=== PATIENT | male | born 1960 | race Caucasian/White ===

== ENCOUNTER → 2017-09-03 | Outpatient (CLI) | payer BC, MEDICARE ==
--- NOTE | 2017-09-03 14:57 | US ---
EXAMINATION TYPE: US venous doppler duplex LE DATE OF EXAM: 09/03/2017 9:50 AM COMPARISON: NONE CLINICAL HISTORY: M79.604 pain rt leg, M79.605 pain left leg. SIDE PERFORMED: Bilateral TECHNIQUE: The lower extremity deep venous system is examined utilizing real time linear array sonog humaira with graded compression, doppler sonography and color-flow sonography. VESSELS IMAGED: External Iliac Vein (EIV) Common Femoral Vein Deep Femoral Vein Greater Saphenous Vein * Femoral Vein Popliteal Vein Small Saphenous Vein * Proximal Calf Veins (* superficial vessels) NO reflux detected in right leg, unable to test in groin as patient could not valsalva and augmentati on not sufficient to move blood as patient has very large body habitus. Right Leg: Negative for DVT Left Leg: Positive for DVT of indeterminate age. From the mid FV through distal pop there is partial compression, thready flow and continuous flow noted, all consistent with chronic 'DVT, IMPRESSION: Left lower extremity findings favored chronic nonocclusive thrombus as detailed above. N o convincing evidence for acute DVT in either lower extremity.
== END ==
LOC: RADUSWWP 08:41
PROVIDERS: ATTEND Podiatrist
DX: M79.604 Pain in right leg (principal); M79.605 Pain in left leg
CPT/HCPCS: 93970; 99212

== ENCOUNTER → 2022-01-13 | Outpatient (CLI) | payer MEDICARE, OTHER ==
--- NOTE | 2022-01-13 20:18 | EEG ---
ELECTROENCEPHALOGRAM REPORT CLINICAL HISTORY: This is a 61-year-old gentleman with history of reported seizures with recent possible break-through seizure that was suspected. The video EEG is obtained to evaluate for seizure epileptiform activity. RELEVANT MEDICATION: Unknown per medical record. EEG TYPE: A routine 21 channel EEG is performed with video using the 10/20 electrode system. DESCRIPTION: Wakefulness and drowsiness are obtained. During awake state, the posterior- dominant rhythm consists of low to moderate voltage of 7-8 hertz that is well modulated, well sustained. There is no physiological stage 2 sleep architecture. There is no focal slowing. Interictal and ictal is none. ACTIVATION PROCEDURE: Photic stimulation did evoke a posterior driving response at multiple low flash frequencies. There is no abnormality during the photic stimulation. Hyperventilation is not performed. CLINICAL INTERPRETATION: This is an abnormal routine EEG. The background slowing is suggestive of mild encephalopathy of unknown etiology. Otherwise, there is no focal slowing, epileptiform discharge or seizure on the EEG. Clinical correlation is recommended. RECOMMENDATION: If there continues suspicion for seizure, recommend an ambulatory EEG as an outpatient. MMODL / IJN: [id number] / NICOLE
== END ==
LOC: NEUROMAIN 08:05
PROVIDERS: ATTEND Psychiatry & Neurology Neurology
DX: R56.9 Unspecified convulsions (principal); Z87.891 Personal history of nicotine dependence; Z88.0 Allergy status to penicillin
CPT/HCPCS: 95816

== ENCOUNTER 2022-10-28 15:55 | Inpatient (IN) | payer MEDICARE, OTHER ==
--- NOTE | 2022-10-28 16:46 | ED ---
Fever HPI - General Source: RN notes reviewed <Marli Henning - Last Filed: 10/28/22 16:38> <Gloria Whittington - Last Filed: 11/03/22 00:21> - General Stated Complaint: right foot swelling Time Seen by Provider: 10/28/22 16:44 - History of Present Illness Initial Comments: Patient is a 62-year-old male who presents to the emergency department for right foot swelling. He denies injury. Patient states he has infection of his right foot which he follows with the wound clinic for. Patient states he was sent by Dr. Ashraf today for IV antibiotics. Patient is diabetic. He denies any signific ant pain in the extremity. Denies chest pain. Denies fever, chills, nausea, vomiting. (Marli Henning) 62-year-old male past history of diabetes mellitus, chronic lower extremity wounds presents emergency department from outside hospital. States that he found a wound on his right foot. Was evaluated at [facility] and he wanted him admitted but to send him down to [facility]. Patient wanted to stay an area and therefore he left and came to our facility. Reports that he had an x-ray performed which demonstrated a foreign body. Patient normally follows with Dr. Ashraf from podiatry. He is not currently on any antibiotics. He admits to some pain in the foot. No swelling or redness to the cath. No fevers. No other alleviating, crt modifying factors (Gloria Whittington) - Related Data Home Medications Medication Instructions Recorded Confirmed Pentoxifylline 400 mg PO TID 07/16/17 10/28/22 Atorvastatin [Lipitor] 20 mg PO HS 10/28/22 10/28/22 Empagliflozin [Jardiance] 25 mg PO DAILY 10/28/22 10/28/22 glipiZIDE 10 mg PO BID 10/28/22 10/28/22 Previous Rx's Medication Instructions Recorded Cephalexin [Keflex] 500 mg PO Q6HR #56 cap 11/02/22 Allergies Allergy/AdvReac Type Severity Reaction Status Date / Time Penicillins Allergy Rash/Hives Verified 10/28/22 18:55 Review of Systems ROS Other: All systems not noted in ROS Statement are negative. <Marli Henning - Last Filed: 10/28/22 16:38> ROS Other: All systems not noted in ROS Statement are negative. <Gloria Whittington Jason - Last Filed: 11/03/22 00:21> ROS Statement: Those systems with pertinent positive or pertinent negative responses have been documented in the HPI. Past Medical History Past Medical History: Asthma, Diabetes Mellitus, Hypertension, Osteoarthritis (OA), Seizure Disorder, Vascular Disorder Additional Past Medical History / Comment(s): edema and open wounds to right leg History of Any Multi-Drug Resistant Organisms: None Reported Past Surgical History: Appendectomy, Cholecystectomy, Orthopedic Surgery Additional Past Surgical History / Comment(s): alcira in left leg from fractured femur, colonoscopy Past Anesthesia/Blood Transfusion Reactions: No Reported Reaction Past Psychological History: No Psychological Hx Reported - Past Family History Mother Family Medical History: Coronary Artery Disease (CAD), CVA/TIA Father Family Medical History: Dementia <Marli Henning - Last Filed: 10/28/22 16:38> General Exam <Marli Henning - Last Filed: 10/28/22 16:38> - General Exam Comments Initial Comments: Visual Physical Exam Vital signs reviewed General: Well-appearing, nontoxic, no acute distress. Head: Normocephalic, atraumatic Eyes: PERRLA, EOMI ENT: Airway patent Chest: Nonlabored breathing Skin: No visual rash, normal skin tone Neuro: Alert and oriented 3 Musculoskeletal: No gross abnormalities (Marli Henning) Course Vital Signs 10/28/22 10/28/22 10/28/22 16:59 17:01 18:01 Temperature 100.2 F H 98.9 F 98.9 F Pulse Rate 68 88 88 Pulse Rate [ Pulse Oximetery ] Respiratory 18 16 20 Rate Blood Pressure 152/74 153/91 145/90 Blood Pressure [Right Arm] O2 Sat by Pulse 98 97 98 Oximetry 10/28/22 10/28/22 10/28/22 19:01 20:00 21:00 Temperature 98.8 F Pulse Rate 67 80 77 Pulse Rate [ Pulse Oximetery ] Respiratory 16 20 20 Rate Blood Pressure 150/90 148/95 150/60 Blood Pressure [Right Arm] O2 Sat by Pulse 98 98 98 Oximetry 10/28/22 10/28/22 10/29/22 22:00 23:00 00:00 Temperature Pulse Rate 77 79 84 Pulse Rate [ Pulse Oximetery ] Respiratory 18 16 16 Rate Blood Pressure 153/66 169/79 154/77 Blood Pressure [Right Arm] O2 Sat by Pulse 95 97 98 Oximetry 10/29/22 10/29/22 10/29/22 01:00 02:00 04:00 Temperature Pulse Rate 80 81 74 Pulse Rate [ Pulse Oximetery ] Respiratory 16 16 16 Rate Blood Pressure 142/72 107/74 126/70 Blood Pressure [Right Arm] O2 Sat by Pulse 98 98 Oximetry 10/29/22 10/29/22 06:05 07:00 Temperature 97.6 F Pulse Rate 81 Pulse Rate [ 94 Pulse Oximetery ] Respiratory 16 16 Rate Blood Pressure 141/75 Blood Pressure 138/78 [Right Arm] O2 Sat by Pulse 95 96 Oximetry Medical Decision Making - Lab Data Result diagrams: 10/31/22 06:10 11/02/22 11:23 <Gloria Whittington A - Last Filed: 11/03/22 00:21> - Medical Decision Making Was pt. sent in by a medical professional or institution (, PA, CONSTRUCTION [employer]AMER, urgent care, hospital, or correction...) When possible be specific @ -yes, PCP Did you speak to anyone other than the patient for history (EMS, parent, family, police, friend...)? What history was obtained from this source @ -No Did you review nursing and triage notes (agree or disagree)? Why? @ -I reviewed and agree with nursing and triage notes Were old charts reviewed (outside hosp., previous admission, EMS record, old EKG, old radiological studies, urgent care reports/EKG's, correction records)? Report findings @ -No old charts were reviewed Differential Diagnosis (chest pain, altered mental status, abdominal pain women, abdominal pain men, vaginal bleeding, weakness, fever, dyspnea, syncope, headache, dizziness, GI bleed, back pain, seizure, CVA, palpatations, mental health, musculoskeletal)? @ -cellulitis, abscess, retained foreign body, necrotizing fascitis, sepsis EKG interpreted by me (3pts min.). @ -Not done X-rays interpreted by me (1pt min.). @ -yes CT interpreted by me (1pt min.). @ -None done U/S interpreted by me (1pt. min.). @ -None done What testing was considered but not performed or refused? (CT, X-rays, U/S, labs)? Why? @ -None What meds were considered but not given or refused? Why? @ -Unasyn - patient has pcn allergy Did you discuss the management of the patient with other professionals (professionals i.e. , PA, CONSTRUCTION [employer]AMER, lab, RT, psych nurse, social sciences lecturer, geographic information system analyst, teacher, accounts officer, employment case manager)? Give summary @ -Admitting physician Was smoking cessation discussed for >3mins.? @ -No Was critical care preformed (if so, how long)? @ -No Were there social determinants of health that impacted care today? How? (Homelessness, low income, unemployed, alcoholism, drug addiction, transportation, low edu. Level, literacy, decrease access to med. care, fci, rehab)? @ -No Was there de-escalation of care discussed even if they declined (Discuss DNR or withdrawal of care, Hospice)? DNR status @ -No What co-morbidities impacted this encounter? (DM, HTN, Smoking, COPD, CAD, Can cer, CVA, ARF, Chemo, Hep., AIDS, mental health diagnosis, sleep apnea, morbid obesity)? @ -DM, htn Was patient admitted / discharged? Hospital course, mention meds given and route, prescriptions, significant lab abnormalities, going to OR and other pertinent info. @ -Upon arrival patient was placed into room 10. A thorough history and phy sical exam was performed. X-ray was performed which demonstrates a metallic foreign body in the right lateral foot. Sed rate is 70. CRP is 14.4. White count is 14. Blood cultures obtained and patient started on clindamycin. Recommended admission for podiatry consult. Patient was agreeable to this. Spoke with Dr. Hughes who agreed to admit the patient. Undiagnosed new problem with uncertain prognosis? @ -yes Drug Therapy requiring intensive monitoring for toxicity (Heparin, Nitro, Insulin, Cardizem)? @ -No Were any procedures done? @ -No Diagnosis/symptom? @ -right foot open wound, right foot cellulitis, retained foreign body Acute, or Chronic, or Acute on Chronic? @ -acute Uncomplicated (without systemic symptoms) or Complicated (systemic symptoms)? @ -complicated Side effects of treatment? @ -No Exacerbation, Progression, or Severe Exacerbation? @ -No Poses a threat to life or bodily function? How? (Chest pain, [place], [place], pneumonia, PE, COPD, DKA, ARF, appy, cholecystitis, CVA, Diverticulitis, Homicidal, Suicidal, threat to staff... and all critical care pts) @ -yes (Gloria Whittington) - Lab Data Lab Results 10/28/22 10/28/22 10/28/22 Range/Units 18:00 18:00 18:00 WBC 14.1 H (3.8-10.6) k/uL RBC 5.11 (4.30-5.90) m/uL Hgb 15.1 (13.0-17.5) gm/dL Hct 45.4 (39.0-53.0) % MCV 88.8 (80.0-100.0) fL MCH 29.5 (25.0-35.0) pg MCHC 33.2 (31.0-37.0) g/dL RDW 13.8 (11.5-15.5) % Plt Count 296 (150-450) k/uL MPV 7.3 Neutrophils % 80 % Lymphocytes % 10 % Monocytes % 7 % Eosinophils % 1 % Basophils % 0 % Neutrophils # 11.3 H (1.3-7.7) k/uL Lymphocytes # 1.4 (1.0-4.8) k/uL Monocytes # 1.0 (0-1.0) k/uL Eosinophils # 0.2 (0-0.7) k/uL Basophils # 0.0 (0-0.2) k/uL ESR 70 H (0-15) mm/hr Sodium 139 (137-145) mmol/L Potassium 4.7 (3.5-5.1) mmol/L Chloride 102 (98-107) mmol/L Carbon Dioxide 30 (22-30) mmol/L Anion Gap 7 mmol/L BUN 14 (9-20) mg/dL Creatinine 0.54 L (0.66-1.25) mg/dL Est GFR (CKD-EPI)AfAm >90 (>60 ml/min/1.73 sqM) Est GFR (CKD-EPI)NonAf >90 (>60 ml/min/1.73 sqM) Glucose 189 H (74-99) mg/dL Plasma Lactic Acid Paresh 1.2 (0.7-2.0) mmol/L Calcium 8.9 (8.4-10.2) mg/dL Total Bilirubin 0.9 (0.2-1.3) mg/dL AST 18 (17-59) U/L ALT 14 (4-49) U/L Alkaline Phosphatase 128 H (38-126) U/L C-Reactive Protein 14.4 H (<1.0) mg/dL Total Protein 7.8 (6.3-8.2) g/dL Albumin 4.0 (3.5-5.0) g/dL Disposition <Marli Henning - Last Filed: 10/28/22 16:38> Is patient prescribed a controlled substance at d/c from ED?: No Time of Disposition: 21:20 Decision to Admit Reason: Admit from EC Decision Date: 10/28/22 Decision Time: 21:20 <Gloria Whittington - Last Filed: 11/03/22 00:21> Clinical Impression: Foreign body in foot, Foot ulcer, Leukocytosis Disposition: ADMITTED IP TO THIS HOSP Condition: Stable
[2022-10-28 18:10] LABS: Basophils % (A) 0 %; Eosinophils # (A) 0.2 k/uL (0-0.7); Eosinophils % (A) 1 %; HCT 45.4 % (39.0-53.0); HGB 15.1 gm/dL (13.0-17.5); Lymphocytes # (A) 1.4 k/uL (1.0-4.8); Lymphocytes % (A) 10 %; MCH 29.5 pg (25.0-35.0); MCHC 33.2 g/dL (31.0-37.0); MCV 88.8 fL (80.0-100.0); Mean Platelet Volume 7.3; Monocytes % (A) 7 %; Neutrophils # (A) 11.3 k/uL (1.3-7.7); Neutrophils % (A) 80 %; Platelet Count 296 k/uL (150-450); RBC 5.11 m/uL (4.30-5.90); RDW 13.8 % (11.5-15.5); WBC 14.1 k/uL (3.8-10.6)
[2022-10-28 18:22] LABS: ALT 14 U/L (4-49); AST 18 U/L (17-59); African American GFR (CKD) >90 (>60 ml/min/1.73 sqM); Alkaline Phosphatase 128 U/L (38-126); Anion Gap 7 mmol/L; Blood Urea Nitrogen 14 mg/dL (9-20); Calcium 8.9 mg/dL (8.4-10.2); Carbon Dioxide 30 mmol/L (22-30); Chloride 102 mmol/L (98-107); Glucose 189 mg/dL (74-99); Non-African American GFR(CKD) >90 (>60 ml/min/1.73 sqM); Potassium 4.7 mmol/L (3.5-5.1); Sodium 139 mmol/L (137-145); Total Bilirubin 0.9 mg/dL (0.2-1.3); Total Protein 7.8 g/dL (6.3-8.2)
[2022-10-28 18:40] LABS: C Reactive Protein 14.4 mg/dL (<1.0)
[2022-10-28 19:44] LABS: Erythrocyte Sedimentation Rate 70 mm/hr (0-15)
[2022-10-28] MEDS ORDERED: CLINDAMYCIN 600 MG in DEXTROSE 5% IN WATER 50 ML IVPB STA ×2 (20:32)
--- NOTE | 2022-10-28 20:51 | XR ---
EXAMINATION TYPE: XR foot complete RT DATE OF EXAM: 10/28/2022 8:47 PM INDICATION: Patient age:Male; 62 years old; Reason for study: wound, foreign body; COMPARISON: None TECHNIQUE: The right foot was examined in the AP, oblique, and lateral projections. FINDINGS: No evidence of any acute osseous pathology. No evidence of soft tissue swelling. Joints are preserve d. Linear radiopaque foreign body in the lateral right foot near the distal left fifth metatarsal shaft. IMPRESSION: 1. Linear radiopaque foreign body in the lateral right foot near the distal left fifth metatarsal sh aft. 2. No evidence of fracture.
[2022-10-28] MEDS ORDERED: HYDROcodone/APAP 5-325MG 1 EACH TAB PO PRN (21:20)
[2022-10-28] MEDS ORDERED: NALOXONE 0.4 MG/ML 1 ML VIAL IV PRN (21:20)
[2022-10-28] MEDS ORDERED: VANCOMYCIN IV PER PHARMACY 1 EACH MISC MISCELLANE PRN (23:57)
[2022-10-29] MEDS ORDERED: LEVOFLOXACIN 750MG-D5W PMX 750 MG in DEXTROSE/WATER 1 150ML.BAG IVPB SCH
[2022-10-29] MEDS: ATORVASTATIN 20 MG TAB PO SCH ×2 (00:02→21:02)
[2022-10-29] MEDS: PENTOXIFYLLINE 400 MG TABLET.ER PO SCH ×4 (00:02→21:02)
[2022-10-29] MEDS ORDERED: VANCOMYCIN 2,000 MG in SODIUM CHLORIDE 0.9% 500 ML 500 ML IVPB ONE (00:15)
--- NOTE | 2022-10-29 00:36 | P.HPIM ---
History of Present Illness H&P Date: 10/28/22 Chief Complaint: foot ulcer 62 year old male with DM , morbid obesity patient coming in today after noticing an ulcer in his right foot, he noticed some pain (has neuropathy and does not feel much) and swelling, and erythema. he denies any fever, chills, , he does not recall how he got it injured. he went to [facility] , and xrays showed foreign body in the wound , and his doctor suggested admission to the hospital , he decided to come in to our facility to stay in the area. he follows up with podiatry as outpatient. he denies any bleeding, any drainage from the wound. he is trying to live a healthier life style and has lost 160 lbs intentionally over the past year. he denies any smoking, illicit drugs or alcohol Review of Systems Pertinent positives as noted in HPI. All other systems were reviewed and are negative Past Medical History Past Medical History: Asthma, Diabetes Mellitus, Hypertension, Osteoarthritis (OA), Seizure Disorder, Vascular Disorder Additional Past Medical History / Comment(s): edema and open wounds to right leg History of Any Multi-Drug Resistant Organisms: None Reported Past Surgical History: Appendectomy, Cholecystectomy, Orthopedic Surgery Additional Past Surgical History / Comment(s): alcira in left leg from fractured femur, colonoscopy Past Anesthesia/Blood Transfusion Reactions: No Reported Reaction Past Psychological History: No Psychological Hx Reported Smoking Status: Never smoker Past Alcohol Use History: None Reported Past Drug Use History: None Reported - Past Family History Mother Family Medical History: Coronary Artery Disease (CAD), CVA/TIA Father Family Medical History: Dementia Medications and Allergies Home Medications Medication Instructions Recorded Confirmed Type Pentoxifylline 400 mg PO TID 07/16/17 10/28/22 History Atorvastatin [Lipitor] 20 mg PO HS 10/28/22 10/28/22 History Empagliflozin [Jardiance] 25 mg PO DAILY 10/28/22 10/28/22 History glipiZIDE 10 mg PO BID 10/28/22 10/28/22 History Allergies Allergy/AdvReac Type Severity Reaction Status Date / Time Penicillins Allergy Rash/Hives Verified 10/28/22 18:55 Physical Exam Vitals: Vital Signs Temp Pulse Resp BP Pulse Ox 10/28/22 20:00 80 20 148/95 98 10/28/22 19:01 98.8 F 67 16 150/90 98 10/28/22 18:01 98.9 F 88 20 145/90 98 10/28/22 17:01 98.9 F 88 16 153/91 97 10/28/22 16:59 100.2 F H 68 18 152/74 98 Intake and Output 10/28/22 10/28/22 10/28/22 06:59 14:59 22:59 Other: Weight 135.624 kg Constitutional: No acute distress, conversant, pleasant Eyes: Anicteric sclerae, moist conjunctiva, Pupils equal round reactive to light ENMT: NC/AT Oropharynx clear, no erythema, or exudates Neck: Supple, no masses, or JVD No carotid bruits No thyromegaly Lungs: Clear to auscultation Clear to percussion Normal respiratory effort, no accessory muscle use Cardiovascular: Heart regular in rate and rhythm, No murmurs, gallops, or rubs No peripheral edema Abdominal: Soft Nontender, no guarding, rebound or rigidity Abdomen moving with respiration Normoactive bowel sounds No hepatomegaly, No splenomegaly No palpable mass No abdominal wall hernia noted Skin: ulcer over the lateral aspect of the right foot, no bleeding , no drainage, with surrounding erythema and slight induration , swelling of the right foot erythema extends to mid foot Extremities: No digital cyanosis No clubbing Pedal pulses intact and symmetrical Radial pulses intact and symmetrical No calf tenderness Psychiatric: Alert and oriented to person, place and time Appropriate affect fair judgment Neuro Muscles Strength 5/5 in all 4 extremities Sensation to light touch grossly present throughout, with decrease sensation over the legs Cranial nerves II-XII grossly intact Lymphatics: no palpable cervical or supraclavicular lymph nodes Results CBC & Chem 7: 10/28/22 18:00 10/28/22 18:00 Labs: Abnormal Lab Results - Last 24 Hours (Table) 10/28/22 10/28/22 Range/Units 18:00 18:00 WBC 14.1 H (3.8-10.6) k/uL Neutrophils # 11.3 H (1.3-7.7) k/uL ESR 70 H (0-15) mm/hr Creatinine 0.54 L (0.66-1.25) mg/dL Glucose 189 H (74-99) mg/dL Alkaline Phosphatase 128 H (38-126) U/L C-Reactive Protein 14.4 H (<1.0) mg/dL Assessment and Plan Assessment: 62 year old male with DM , obesity , presented for new right foot ulcer, I discussed the case with ED doc, patient found to have a foreign body in the right foot along with diabetic foot ulcer , admitted for IV antibiotics and surgical evaluation with anticipated length of stay > 2 midnights diabetic foot ulcer with foreign body DM follow up cultures podiatry consultation initiated on antibiotics , patient received one time dose clindamycin in the ED will start vancomycin dosing by pharmacy , flagyl 500 mg IVPB TID, levofloxacin 750 mg IVPB q24 hrs (patient allergic to penicillin ) pain control with norco tylenol for fever 650 mg PO qrh PRN blood work showed WBC 14.1, low grade fever , ESR 70, CRP 14.4 xray of the foot showed foreign body in the wound insulin sliding scale for DM blood work reviewed , BUN 14 Cr 0.54 , alk phos 128 elevated , check UA , patient reported urgency and foul smelling urine morbid obesity , intentional weight loss of 166 lb over > 1 year with life style modification full code DVT PPX heparin sc tid
[2022-10-29] MEDS: metroNIDAZOLE-NS PMX 500 MG in SALINE 1 100ML.BAG IVPB SCH ×2 (01:30→10:19)
[2022-10-29] MEDS: SODIUM CHLORIDE 0.9% 1,000 ML IV SCH ×2 (01:31→15:26)
[2022-10-29 05:42] LABS: Appearance,Urine Clear (Clear); Bacteria,Urine Rare /hpf; Bilirubin,Urine Negative (Negative); Blood,Urine Negative (Negative); Budding Yeast,Urine Few /hpf; Color,Urine Yellow; Glucose,Urine (UA) 4+ (Negative); Hyaline Casts,Urine 1 /lpf (0-2); Ketones,Urine 1+ (Negative); Leukocyte Esterase,Urine Negative (Negative); Mucus,Urine Moderate /hpf; Nitrite,Urine Negative (Negative); PH, Urine 5.5 (5.0-8.0); Protein,Urine 2+ (Negative); RBC,Urine 1 /hpf (0-5); Specific Gravity,Urine 1.036 (1.001-1.035); Squamous Epithelial Cell,Urine 3 /hpf (0-4); WBC,Urine 2 /hpf (0-5)
[2022-10-29 06:56] LABS: Glucose,Whole Blood 172 mg/dL (70-110)
[2022-10-29] MEDS: INSULIN ASPART (NovoLOG) 100 UNIT/ML VIAL SQ SCH ×4 (08:41→21:07)
[2022-10-29] MEDS ORDERED: glipiZIDE 10 MG TAB PO SCH (09:00)
[2022-10-29] MEDS ORDERED: DAPAGLIFLOZIN PROPANEDIOL 10 MG TABLET PO SCH (09:00)
[2022-10-29 09:11] LABS: Basophils # (A) 0.1 k/uL (0-0.2); Basophils % (A) 1 %; Eosinophils # (A) 0.3 k/uL (0-0.7); Eosinophils % (A) 3 %; HCT 42.6 % (39.0-53.0); HGB 14.2 gm/dL (13.0-17.5); Lymphocytes # (A) 1.4 k/uL (1.0-4.8); Lymphocytes % (A) 16 %; MCH 29.6 pg (25.0-35.0); MCHC 33.4 g/dL (31.0-37.0); MCV 88.6 fL (80.0-100.0); Mean Platelet Volume 7.8; Monocytes # (A) 0.6 k/uL (0-1.0); Monocytes % (A) 6 %; Neutrophils # (A) 6.6 k/uL (1.3-7.7); Neutrophils % (A) 72 %; Platelet Count 270 k/uL (150-450); RBC 4.81 m/uL (4.30-5.90); RDW 14.1 % (11.5-15.5); WBC 9.2 k/uL (3.8-10.6)
[2022-10-29 09:26] LABS: African American GFR (CKD) >90 (>60 ml/min/1.73 sqM); Anion Gap 8 mmol/L; Blood Urea Nitrogen 13 mg/dL (9-20); Calcium 8.4 mg/dL (8.4-10.2); Carbon Dioxide 25 mmol/L (22-30); Chloride 105 mmol/L (98-107); Glucose 215 mg/dL (74-99); Non-African American GFR(CKD) >90 (>60 ml/min/1.73 sqM); Potassium 4.3 mmol/L (3.5-5.1); Sodium 138 mmol/L (137-145)
[2022-10-29] MEDS: HEPARIN SODIUM,PORCINE/PF 5,000 UNIT/0.5 ML SYRINGE SQ SCH ×3 (10:18→23:18)
[2022-10-29 12:01] LABS: Glucose,Whole Blood 196 mg/dL (70-110)
[2022-10-29] MEDS: VANCOMYCIN 2,000 MG in SODIUM CHLORIDE 0.9% 500 ML 500 ML IVPB SCH ×2 (13:05→21:02)
[2022-10-29] MEDS ORDERED: IV FLUID CONTINUATION 1,000 ML IV ONE (15:19)
[2022-10-29] MEDS ORDERED: ONDANSETRON 4 MG/2 ML VIAL ONE (15:34)
[2022-10-29 15:35] LABS: Glucose,Whole Blood 142 mg/dL (70-110)
[2022-10-29] MEDS ORDERED: DEXAMETHASONE SOD PHOSPHATE 4 MG/ML 1 ML VIAL IVP ONE (15:39)
[2022-10-29] MEDS ORDERED: ONDANSETRON 4 MG/2 ML VIAL IVP ONE (15:39)
[2022-10-29] MEDS ORDERED: PROPOFOL 10 MG/ML 20 ML VIAL IV ONE (15:56)
[2022-10-29] MEDS ORDERED: fentaNYL (PF) 50 MCG/ML 2 ML AMP ONE (15:56)
[2022-10-29] MEDS ORDERED: LIDOCAINE 2% INJ 20 MG/ML (2 ML VIAL) ONE (15:56)
[2022-10-29] MEDS ORDERED: MIDAZOLAM 2 MG/2 ML VIAL ONE (15:56)
[2022-10-29] MEDS ORDERED: SUCCINYLCHOLINE CHLORIDE 200 MG/10 ML VIAL IV ONE (15:56)
[2022-10-29] MEDS ORDERED: ceFAZolin 1,000 MG in SODIUM CHLORIDE 0.9% 1,000 ML IRRIGATION ONE (16:01)
[2022-10-29] MEDS ORDERED: BUPIVACAINE (PF) 0.25% 30 ML VIAL SQ ONE (16:27)
[2022-10-29 16:56] LABS: Glucose,Whole Blood 139 mg/dL (70-110)
--- NOTE | 2022-10-29 17:01 | P.CNOR ---
History of Present Illness - HPI Consult date: 10/29/22 Consult reason: other (Right foot infection with retained foreign body) Past Medical History Past Medical History: Asthma, Diabetes Mellitus, Hypertension, Osteoarthritis (OA), Seizure Disorder, Vascular Disorder Additional Past Medical History / Comment(s): edema and open wounds to right leg History of Any Multi-Drug Resistant Organisms: None Reported Past Surgical History: Appendectomy, Cholecystectomy, Orthopedic Surgery Additional Past Surgical History / Comment(s): alcira in left leg from fractured femur, colonoscopy Past Anesthesia/Blood Transfusion Reactions: No Reported Reaction Past Psychological History: No Psychological Hx Reported Smoking Status: Never smoker Past Alcohol Use History: None Reported Past Drug Use History: None Reported - Past Family History Mother Family Medical History: Coronary Artery Disease (CAD), CVA/TIA Father Family Medical History: Dementia Medications and Allergies Home Medications Medication Instructions Recorded Confirmed Type Pentoxifylline 400 mg PO TID 07/16/17 10/28/22 History Atorvastatin [Lipitor] 20 mg PO HS 10/28/22 10/28/22 History Empagliflozin [Jardiance] 25 mg PO DAILY 10/28/22 10/28/22 History glipiZIDE 10 mg PO BID 10/28/22 10/28/22 History Allergies Allergy/AdvReac Type Severity Reaction Status Date / Time Penicillins Allergy Rash/Hives Verified 10/28/22 18:55 Physical Examination Osteopathic Statement: *. No significant issues noted on an osteopathic structural exam other than those noted in the History and Physical/Consult. - Ankle & Foot right Ankle appearance: normal Foot appearance: swelling, erythema, other (entry wound on the plantar-lateral aspect of the foot near the 5th MTP with serous drainage) Foot swelling: dorsal, plantar, lateral Tenderness with palpation: lateral foot Tingling/Numbness: foot (secondary to DM neuropathy) Ankle alignment: normal Foot alignment: normal Hammer toe location: none Claw toe location: none Full ROM: yes ROM: dorsiflexion: normal ROM: plantarflexion: normal ROM: eversion: normal ROM: first MTP joint flexion: normal ROM: first MTP joint extension: normal Strength: dorsiflexion: 5/5 Strength: plantarflexion: 5/5 Strength: inversion: 5/5 Strength: eversion: 5/5 Strength: toe extension: 5/5 Strength: toe flexion: 5/5 Results - Labs Labs: Abnormal Lab Results - Last 24 Hours (Table) 10/28/22 10/28/22 10/29/22 Range/Units 18:00 18:00 01:35 WBC 14.1 H (3.8-10.6) k/uL Neutrophils # 11.3 H (1.3-7.7) k/uL ESR 70 H (0-15) mm/hr Creatinine 0.54 L (0.66-1.25) mg/dL Glucose 189 H (74-99) mg/dL POC Glucose (mg/dL) (70-110) mg/dL Alkaline Phosphatase 128 H (38-126) U/L C-Reactive Protein 14.4 H (<1.0) mg/dL Ur Specific [place] 1.036 H (1.001-1.035) Urine Protein 2+ H (Negative) Urine Glucose (UA) 4+ H (Negative) Urine Ketones 1+ H (Negative) Urine Bacteria Rare H (None) /hpf Urine Mucus Moderate H (None) /hpf Urine Yeast (Budding) Few H (None) /hpf 10/29/22 10/29/22 10/29/22 Range/Units 06:55 08:37 11:59 WBC (3.8-10.6) k/uL Neutrophils # (1.3-7.7) k/uL ESR (0-15) mm/hr Creatinine 0.52 L (0.66-1.25) mg/dL Glucose 215 H (74-99) mg/dL POC Glucose (mg/dL) 172 H 196 H (70-110) mg/dL Alkaline Phosphatase (38-126) U/L C-Reactive Protein (<1.0) mg/dL Ur Specific [place] (1.001-1.035) Urine Protein (Negative) Urine Glucose (UA) (Negative) Urine Ketones (Negative) Urine Bacteria (None) /hpf Urine Mucus (None) /hpf Urine Yeast (Budding) (None) /hpf 10/29/22 Range/Units 15:31 WBC (3.8-10.6) k/uL Neutrophils # (1.3-7.7) k/uL ESR (0-15) mm/hr Creatinine (0.66-1.25) mg/dL Glucose (74-99) mg/dL POC Glucose (mg/dL) 142 H (70-110) mg/dL Alkaline Phosphatase (38-126) U/L C-Reactive Protein (<1.0) mg/dL Ur Specific [place] (1.001-1.035) Urine Protein (Negative) Urine Glucose (UA) (Negative) Urine Ketones (Negative) Urine Bacteria (None) /hpf Urine Mucus (None) /hpf Urine Yeast (Budding) (None) /hpf Microbiology - Last 24 Hours (Table) 10/28/22 20:30 Wound Culture - Preliminary Foot - Right H & H 10/28/22 10/29/22 Range/Units 18:00 08:37 Hgb 15.1 14.2 (13.0-17.5) gm/dL Hct 45.4 42.6 (39.0-53.0) % Result Diagrams: 10/29/22 08:37 10/29/22 08:37 - Diagnostic results Ankle/Foot x-ray: report reviewed, image reviewed (metallic foreign body noted lateral to 5th MTP) Assessment and Plan (1) Foreign body in foot Current Visit: Yes Status: Acute Code(s): S90.859A - SUPERFICIAL FOREIGN BODY, UNSPECIFIED FOOT, INIT ENCNTR SNOMED Code(s): 775225535 (2) Cellulitis of right foot Current Visit: Yes Status: Acute Code(s): L03.115 - CELLULITIS OF RIGHT LOWER LIMB SNOMED Code(s): 674293535 Plan: The patient was consented for incision and drainage of right foot cellulitis and removal of metallic foreign body Patient's DPOA sign consent for surgery Wound consult submitted for follow-up Time with Patient: Less than 30
--- NOTE | 2022-10-29 17:05 | P.OP ---
Date of Procedure: 10/29/22 Preoperative Diagnosis: 1. Cellulitis right foot 2. Retained foreign body right foot Postoperative Diagnosis: 1. Same 2. Same Procedure(s) Performed: 1. Incision and drainage right foot 2. Removal of deep foreign body right foot Implants: None Anesthesia: GETA Estimated Blood Loss (ml): 5 Pathology: other (Aerobic and anaerobic wound cultures) Condition: stable Disposition: PACU Indications for Procedure: Patient developed redness, swelling, and pain in the right foot. Patient also developed a fever. Patient was brought to the emergency room for evaluation. Patient was noted to have leukocytosis and x-ray showed a retained metallic foreign body in the right foot. Description of Procedure: The patient was brought into the operating room and placed on table supine position. Timeout was taken to confirm correct patient identifiers, correct laterally with surgery, and correct procedure. When all staff in the room were in agreement timeout, the patient was induced and placed under general anesthesia. A well-padded tourniquet was placed on the right ankle and a bump underneath the right hip to internally rotate the right leg. 20 mL of 0.25% Marcaine was injected as a lateral forefoot block. The right foot was prepped and draped in usual manner. The tourniquet was then inflated to 250 mmHg. Attention was directed over the lateral aspect of the right foot, near the fifth metatarsal phalangeal joint. There appeared to be an entry wound for the foreign body, therefore an incision was made on the plantar lateral aspect of the foot near the fifth metatarsal phalangeal joint. The wound is explored and the metallic foreign body was palpated with instrumentation. The foreign body was able to be grasped and removed entirely. Blunt instrumentation was then used to follow the course of erythema on the plantar aspect of the foot. The was some tunneling within the subcutaneous tissue from lateral to medial. This area was fully opened and debrided with a curette. At this point aerobic and anaerobic wound cultures were obtained. The wound is then thoroughly irrigated with antibiotic saline utilizing a pulse lavage system. The wound is then packed with iodoform gauze. Nonadherent gauze and a dry sterile dressing were applied to the right foot. The tourniquet was released and capillary refill return to all digits on the right foot.
--- NOTE | 2022-10-29 17:14 | P.PN ---
Subjective Progress Note Date: 10/29/22 Hospital course: Patient is a 62-year-old male with a past medical history of non-insulin- dependent diabetes mellitus and hyperlipidemia. He presented to the emergency department on 03/30/23 for evaluation of right foot ulcer. Patient has ulcer/wound to right lateral foot. He underwent full evaluation in the emergency department. CBC and CMP were completed. CBC revealed leukocytosis with WBC count of 14.1 and CMP was unremarkable with the exception of elevated alkaline phosphatase of 128. CRP was elevated at 14.4 and ESR elevated at 70. X-ray right foot was completed and radiology report reviewed stating linear radiopaque foreign body in the lateral right foot near the distal fifth metatarsal shaft, no evidence of fracture. Patient was started on IV antibiotics of vancomycin and cefepime and was admitted under our services with consultation to electric refrigerator servicer. Physical exam: Patient seen and fully evaluated at bedside this morning. Patient currently reports controlled pain and denies having any complaints or concerns. Patient awaiting to go down for incision and drainage and removal of foreign body from right foot wound/ulcer. Vital signs reviewed and stable. Morbidly obese. General: Nontoxic, no distress and appears stated age. Derm: Skin warm and dry, normal coloration for ethnicity.Ulcer/wound to right lateral side of foot with swelling and erythema extending to plantar and dorsal surface of right foot. No bleeding or drainage noted at this time. Head: Atraumatic, normocephalic and symmetric. Eyes: EOMs intact, no lid lag, and anicteric sclera Mouth: no lip lesions, mucus membranes moist Cardiovascular: regular rate and rhythm with normal S1S2, no murmur, positive posterior tibial pulses bilaterally, and cap refill < 2 seconds. Lungs: Respirations even, regular, and unlabored on room air. Lungs CTA bilaterally, no rhonchi, no rales, no wheezing, and no accessory muscle usage. Abdominal: soft, nontender to palpation, no guarding, no appreciable organomegaly Ext: ROM intact. No gross muscle atrophy, no edema, no contractures. Ulcer/wound to right lateral side of foot with swelling and erythema extending to plantar and dorsal surface of right foot. No bleeding or drainage noted at this time. Neuro: Speech clear, face symmetrical and CN II-XII grossly intact with no noted focal neuro deficits Psych: Alert and oriented to person, place, time, and situation. Appropriate and pleasant affect. Assessment and Plan of Care: Infected Diabetic foot ulcer/wound with retained foreign body Type 2 diabetes mellitus with hyperglycemia Morbid obesity with BMI 38.4 kg/m -Initial WBC count of 14.1 with ESR of 70 and CRP of 14.4. -Discussed case with orthopedic/podiatry surgery. Patient to be taken to OR to undergo incision and drainage with removal of foreign body later today. -Continue IV antibiotics with vancomycin and cefepime. -Orders place for repeat morning BMP to follow renal function closely and vancomycin trough while on vancomycin to monitor for any signs of renal toxicity caused by vancomycin. -Morning labs reviewed. Patient has had resolution of previously noted susan kocytosis with WBC count down to 9.2. BMP unremarkable. -Blood glucose remains elevated ranging from 170-219 since admission. -We will continue to hold oral hypoglycemic agents and continue with NovoLog sliding scale to maintain tight glycemic control throughout hospitalization to optimize wound healing. -Infectious disease following. Reviewed note in chart. -Wound cultures and blood cultures obtained, will follow-up on results. -Patient does report intentional weight loss of greater than 100 pounds over the past year. Patient states he has made multiple changes in his life including healthier eating choices. Recommend outpatient structured weight loss program. CODE STATUS: Full code DVT prophylaxis: Heparin Discussed with: Patient, orthopedic surgeon, and RN Anticipated discharge date: Clinical course to determine Anticipated discharge place: Home Patient was seen independently by Nurse Pracitioner. This document was prepared using [employer] dictation software. Please allow for errors in video network engineer, while rare they do occur. Objective - Vital Signs Vital signs: Vital Signs Temp 98.8 F 10/28/22 19:01 Pulse 81 10/29/22 06:05 Resp 16 10/29/22 06:05 BP 141/75 10/29/22 06:05 Pulse Ox 95 10/29/22 06:05 FiO2 Intake & Output 10/28/22 10/29/22 10/29/22 18:59 06:59 18:59 Weight 135.624 kg - Labs CBC & Chem 7: 10/29/22 08:37 10/29/22 08:37 Labs: Abnormal Lab Results - Last 24 Hours (Table) 10/28/22 10/28/22 10/29/22 Range/Units 18:00 18:00 01:35 WBC 14.1 H (3.8-10.6) k/uL Neutrophils # 11.3 H (1.3-7.7) k/uL ESR 70 H (0-15) mm/hr Creatinine 0.54 L (0.66-1.25) mg/dL Glucose 189 H (74-99) mg/dL POC Glucose (mg/dL) (70-110) mg/dL Alkaline Phosphatase 128 H (38-126) U/L C-Reactive Protein 14.4 H (<1.0) mg/dL Ur Specific [place] 1.036 H (1.001-1.035) Urine Protein 2+ H (Negative) Urine Glucose (UA) 4+ H (Negative) Urine Ketones 1+ H (Negative) Urine Bacteria Rare H (None) /hpf Urine Mucus Moderate H (None) /hpf Urine Yeast (Budding) Few H (None) /hpf 10/29/22 Range/Units 06:55 WBC (3.8-10.6) k/uL Neutrophils # (1.3-7.7) k/uL ESR (0-15) mm/hr Creatinine (0.66-1.25) mg/dL Glucose (74-99) mg/dL POC Glucose (mg/dL) 172 H (70-110) mg/dL Alkaline Phosphatase (38-126) U/L C-Reactive Protein (<1.0) mg/dL Ur Specific [place] (1.001-1.035) Urine Protein (Negative) Urine Glucose (UA) (Negative) Urine Ketones (Negative) Urine Bacteria (None) /hpf Urine Mucus (None) /hpf Urine Yeast (Budding) (None) /hpf Microbiology - Last 24 Hours (Table) 10/28/22 20:30 Wound Culture - Preliminary Foot - Right
[2022-10-29 17:43] LABS: Glucose,Whole Blood 157 mg/dL (70-110)
[2022-10-29] MEDS: CEFEPIME 2 GM in SODIUM CHLORIDE 0.9% 100 ML IVPB SCH ×2 (17:54→23:18)
[2022-10-29 21:05] LABS: Glucose,Whole Blood 230 mg/dL (70-110)
--- NOTE | 2022-10-29 23:04 | P.CONS ---
History of Present Illness - Reason for Consult Consult date: 10/29/22 Diabetic foot wound Requesting physician: Gloria Whittington - Chief Complaint Swelling and redness to the right foot x days - History of Present Illness Patient is a 62-year-old male past medical history began for insulin- dependent diabetes mellitus presenting to the ER for evaluation of right foot swelling and redness patient apparently did follow-up with on line csr in the outpatient setting and the patient was sent to the ER concerning for deep infection for IV antibiotic therapy patient denies any history of any trauma patient apparently did have an x-ray done at outside facility with evidence of foreign body to the right foot, however the patient denies any history of any trauma has been complaining of diffuse swelling and redness and some pressure to the right foot pain mostly with touching intensity can be 5-6 out of 10 no radiation and did have mild drainage on arrival to the ER patient did have a low-grade fever 100.2 F patient did have vital 14.1 with a left shift kidney function has been normal liver enzymes are normal CRP is 14.4 urine was negative local cultures obtained which are currently pending x-ray of the foot no evidence of fracture or radiopaque foreign body in the lateral right foot near the distal left fifth metatarsal joint patient was started on vancomycin Levaquin and Flagyl because of his penicillin allergy infectious disease was consulted for further management of antibiotic therapy Review of Systems Positive point has been mentioned in the HPI rest of the systems are negative Past Medical History Past Medical History: Asthma, Diabetes Mellitus, Hypertension, Osteoarthritis (OA), Seizure Disorder, Vascular Disorder Additional Past Medical History / Comment(s): edema and open wounds to right leg History of Any Multi-Drug Resistant Organisms: None Reported Past Surgical History: Appendectomy, Cholecystectomy, Orthopedic Surgery Additional Past Surgical History / Comment(s): alcira in left leg from fractured femur, colonoscopy Past Anesthesia/Blood Transfusion Reactions: No Reported Reaction Past Psychological History: No Psychological Hx Reported Smoking Status: Never smoker Past Alcohol Use History: None Reported Past Drug Use History: None Reported - Past Family History Mother Family Medical History: Coronary Artery Disease (CAD), CVA/TIA Father Family Medical History: Dementia Medications and Allergies Home Medications Medication Instructions Recorded Confirmed Type Pentoxifylline 400 mg PO TID 07/16/17 10/28/22 History Atorvastatin [Lipitor] 20 mg PO HS 10/28/22 10/28/22 History Empagliflozin [Jardiance] 25 mg PO DAILY 10/28/22 10/28/22 History glipiZIDE 10 mg PO BID 10/28/22 10/28/22 History Cephalexin [Keflex] 500 mg PO Q6HR #56 cap 11/02/22 Rx Allergies Allergy/AdvReac Type Severity Reaction Status Date / Time Penicillins Allergy Rash/Hives Verified 10/28/22 18:55 Physical Exam Vitals: Vital Signs Temp Pulse Pulse Resp BP BP Pulse Ox 10/29/22 07:00 97.6 F 94 16 138/78 96 10/29/22 06:05 81 16 141/75 95 10/29/22 04:00 74 16 126/70 98 10/29/22 02:00 81 16 107/74 10/29/22 01:00 80 16 142/72 98 10/29/22 00:00 84 16 154/77 98 10/28/22 23:00 79 16 169/79 97 10/28/22 22:00 77 18 153/66 95 10/28/22 21:00 77 20 150/60 98 10/28/22 20:00 80 20 148/95 98 10/28/22 19:01 98.8 F 67 16 150/90 98 10/28/22 18:01 98.9 F 88 20 145/90 98 10/28/22 17:01 98.9 F 88 16 153/91 97 10/28/22 16:59 100.2 F H 68 18 152/74 98 Intake and Output 10/28/22 10/29/22 10/29/22 22:59 06:59 14:59 Intake Total 118 Balance 118 Intake: Oral 118 Other: Voiding Method Toilet Urinal Weight 135.624 kg GENERAL DESCRIPTION: Middle-aged male lying in bed, no distress. No tachypnea or accessory muscle of respiration use. HEENT: Shows Pallor , no scleral icterus. Oral mucous membrane is dry. No pharyngeal erythema or thrush NECK: Trachea central, no thyromegaly. LUNGS: Unlabored breathing. Clear to auscultation anteriorly. No wheeze or crackle. HEART: S1, S2, regular rate and rhythm. No loud murmur ABDOMEN: Soft, no tenderness , guarding or rigidity, no organomegaly EXTREMITIES: Right foot is swollen and red mostly at the lateral border no purulent drainage SKIN: No rash, no masses palpable. NEUROLOGICAL: The patient is awake, alert, oriented x3, mood and affect normal. Results CBC & Chem 7: 10/31/22 06:10 11/02/22 11:23 Labs: Abnormal Lab Results - Last 24 Hours (Table) 10/28/22 10/28/22 10/29/22 Range/Units 18:00 18:00 01:35 WBC 14.1 H (3.8-10.6) k/uL Neutrophils # 11.3 H (1.3-7.7) k/uL ESR 70 H (0-15) mm/hr Creatinine 0.54 L (0.66-1.25) mg/dL Glucose 189 H (74-99) mg/dL POC Glucose (mg/dL) (70-110) mg/dL Alkaline Phosphatase 128 H (38-126) U/L C-Reactive Protein 14.4 H (<1.0) mg/dL Ur Specific [place] 1.036 H (1.001-1.035) Urine Protein 2+ H (Negative) Urine Glucose (UA) 4+ H (Negative) Urine Ketones 1+ H (Negative) Urine Bacteria Rare H (None) /hpf Urine Mucus Moderate H (None) /hpf Urine Yeast (Budding) Few H (None) /hpf 10/29/22 10/29/22 Range/Units 06:55 08:37 WBC (3.8-10.6) k/uL Neutrophils # (1.3-7.7) k/uL ESR (0-15) mm/hr Creatinine 0.52 L (0.66-1.25) mg/dL Glucose 215 H (74-99) mg/dL POC Glucose (mg/dL) 172 H (70-110) mg/dL Alkaline Phosphatase (38-126) U/L C-Reactive Protein (<1.0) mg/dL Ur Specific [place] (1.001-1.035) Urine Protein (Negative) Urine Glucose (UA) (Negative) Urine Ketones (Negative) Urine Bacteria (None) /hpf Urine Mucus (None) /hpf Urine Yeast (Budding) (None) /hpf Microbiology - Last 24 Hours (Table) 10/28/22 20:30 Wound Culture - Preliminary Foot - Right Assessment and Plan (1) Cellulitis of right foot Status: Acute Code(s): L03.115 - CELLULITIS OF RIGHT LOWER LIMB SNOMED Code(s): 916785677 (2) Type 2 diabetes mellitus with foot ulcer Status: Acute Code(s): E11.621 - TYPE 2 DIABETES MELLITUS WITH FOOT ULCER; L97.509 - NON-PRESSURE CHRONIC ULCER OTH PRT UNSP FOOT W UNSP SEVERITY SNOMED Code(s): 672355592 Plan: 1patient presented to hospital with sepsis and respiratory have low-grade fever elevated white count source is a right diabetic foot infection in this patient with extensive cellulitis involving the right foot and evidence of a foreign body possibly unrealized trauma and will need to cover for the both gram- positive skin anuel as well as gram-negative pathogen 2-penicillin allergy that would limit the number of antibiotics safe to use 3-await foot and ankle specialist evaluation removal of the foreign body and deep culture 4-vancomycin pharmacy to dose with a target trough of 15 while watching kidney function and Vanco trough closely. 5-discontinue Levaquin and Flagyl and cefepime to cover for the gram-negative We will follow on clinical condition and cultures to further adjust medication if needed Thank you for this consultation we will follow the patient along with you Time with Patient: Greater than 30
[2022-10-30] MEDS: SODIUM CHLORIDE 0.9% 1,000 ML IV SCH ×3 (02:42→23:27)
[2022-10-30] MEDS: VANCOMYCIN 2,000 MG in SODIUM CHLORIDE 0.9% 500 ML 500 ML IVPB SCH ×3 (04:12→20:25)
[2022-10-30 06:07] LABS: Glucose,Whole Blood 162 mg/dL (70-110)
[2022-10-30] MEDS: INSULIN ASPART (NovoLOG) 100 UNIT/ML VIAL SQ SCH ×4 (06:48→21:11)
[2022-10-30] MEDS: CEFEPIME 2 GM in SODIUM CHLORIDE 0.9% 100 ML IVPB SCH ×3 (08:18→23:26)
[2022-10-30] MEDS: HEPARIN SODIUM,PORCINE/PF 5,000 UNIT/0.5 ML SYRINGE SQ SCH ×3 (08:19→23:26)
[2022-10-30] MEDS: PENTOXIFYLLINE 400 MG TABLET.ER PO SCH ×3 (08:19→21:11)
[2022-10-30 08:48] LABS: MCV 90.3 fL (80.0-97.0); Mean Platelet Volume 9.6 fL (9.5-12.2); NRBC Per 100 WBC 0 /100 WBCS (0.0-0.0); Platelet Count 300 X 10*3/uL (140-440); RBC 4.65 X 10*6/uL (4.40-5.60); RDW 13.4 % (11.5-14.5); WBC 12.22 X 10*3/uL (4.50-10.00)
[2022-10-30 09:04] LABS: African American GFR (CKD) 125.7 (60.0-200.0); Albumin 3.2 g/dL (3.8-4.9); Albumin/Globulin Ratio 1.05 (1.60-3.17); Anion Gap 7.1 mmol/L (10.00-18.00); BUN/Creat Ratio 17.14 Ratio (12.00-20.00); Calcium 8.6 mg/dL (8.7-10.3); Carbon Dioxide 25.4 mmol/L (20.0-27.5); Magnesium 2.2 mg/dL (1.5-2.4); Non-African American GFR(CKD) 108.4 (60.0-200.0); Potassium 4.5 mmol/L (3.5-5.5); Total Bilirubin 0.4 mg/dL (0.30-1.20); Total Protein 6.2 g/dL (6.2-8.2)
--- NOTE | 2022-10-30 10:46 | P.CONS ---
History of Present Illness - Reason for Consult Consult date: 10/30/22 wound care - History of Present Illness This is a 62-year-old gentleman who is being seen on for a wound care consult status post AICD with formed body removal to the right foot. At this time patient has a dressing on from surgery which is not to be removed until 1600. Patient states that he did not know there is anything in his foot until he started to have edema and redness. Patient had the intervention yesterday. Resulting in a open ulceration with granulation to the wound VAC. Patient's past medical history significant for ABDs, asthma, hypertension, peripheral vascular disease, patient lifelong nonsmoker. Review Of Systems: Constitutional: No fever, no chills, no night sweats. No weight change. No weakness, fatigue or lethargy. No daytime sleepiness. Integumentary:reports wounds, no lesions. No rash or pruritus. No unusual bruising. No change in hair or nails. Physical exam: General Appearance: Alert, cooperative, no distress, appears stated age. Skin: See HPI all other Skin color, texture, tugor normal, no rashes or lesions. Neurologic: Alert oriented x3 Assessment: 1. Nonhealing ulceration to the right foot with fat layer exposure 2. Diabetic foot ulcer Plan: 1. Apply absorptive silver moistened, nonadherent dressing, Kerlix and secure with tape. Change Wednesday. Patient will be set up to be seen in the wound care center next week. Thank you for the consultation any questions to contact the wound care center DNP note has been reviewed and discussed with Dr. Harris and the impression and plan of care has been directed as dictated. Past Medical History Past Medical History: Asthma, Diabetes Mellitus, Hypertension, Osteoarthritis (OA), Seizure Disorder, Vascular Disorder Additional Past Medical History / Comment(s): edema and open wounds to right leg History of Any Multi-Drug Resistant Organisms: None Reported Past Surgical History: Appendectomy, Cholecystectomy, Orthopedic Surgery Additional Past Surgical History / Comment(s): alcira in left leg from fractured femur, colonoscopy Past Anesthesia/Blood Transfusion Reactions: No Reported Reaction Past Psychological History: No Psychological Hx Reported Smoking Status: Never smoker Past Alcohol Use History: None Reported Past Drug Use History: None Reported - Past Family History Mother Family Medical History: Coronary Artery Disease (CAD), CVA/TIA Father Family Medical History: Dementia Medications and Allergies Home Medications Medication Instructions Recorded Confirmed Type Pentoxifylline 400 mg PO TID 07/16/17 10/28/22 History Atorvastatin [Lipitor] 20 mg PO HS 10/28/22 10/28/22 History Empagliflozin [Jardiance] 25 mg PO DAILY 10/28/22 10/28/22 History glipiZIDE 10 mg PO BID 10/28/22 10/28/22 History Allergies Allergy/AdvReac Type Severity Reaction Status Date / Time Penicillins Allergy Rash/Hives Verified 10/28/22 18:55 Physical Exam Vitals: Vital Signs Temp Pulse Pulse Resp BP Pulse Ox 10/30/22 02:35 98.2 F 71 18 156/88 95 10/29/22 20:00 78 17 138/80 93 L 10/29/22 19:44 86 122/68 95 10/29/22 18:29 78 155/87 95 10/29/22 18:25 76 133/74 95 10/29/22 18:15 73 147/79 93 L 10/29/22 17:59 73 150/85 92 L 10/29/22 17:43 97.6 F 74 16 153/89 94 L 10/29/22 17:20 78 16 154/69 92 L 10/29/22 17:05 79 16 158/72 99 10/29/22 16:50 97.1 F L 83 16 160/70 98 10/29/22 15:20 97.3 F L 83 16 148/75 97 10/29/22 15:00 97.4 F L 80 20 134/79 96 Intake and Output 10/29/22 10/30/22 10/30/22 22:59 06:59 14:59 Intake Total 851 Output Total 5 Balance 846 Intake: IV 851 Output: Estimated Blood Loss 5 Other: Voiding Method Urinal Toilet Urinal # Voids 2 4 Results CBC & Chem 7: 10/30/22 05:09 10/30/22 05:09 Labs: Abnormal Lab Results - Last 24 Hours (Table) 10/29/22 10/29/22 10/29/22 Range/Units 11:59 15:31 16:53 WBC (4.50-10.00) X 10*3/uL MCHC (32.0-37.0) g/dL Anion Gap (10.00-18.00) mmol/L Glucose (70-110) mg/dL POC Glucose (mg/dL) 196 H 142 H 139 H (70-110) mg/dL Calcium (8.7-10.3) mg/dL AST (14-35) U/L Albumin (3.8-4.9) g/dL Albumin/Globulin Ratio (1.60-3.17) g/dL 10/29/22 10/29/22 10/30/22 Range/Units 17:41 21:04 05:09 WBC 12.22 H (4.50-10.00) X 10*3/uL MCHC 31.0 L (32.0-37.0) g/dL Anion Gap (10.00-18.00) mmol/L Glucose (70-110) mg/dL POC Glucose (mg/dL) 157 H 230 H (70-110) mg/dL Calcium (8.7-10.3) mg/dL AST (14-35) U/L Albumin (3.8-4.9) g/dL Albumin/Globulin Ratio (1.60-3.17) g/dL 10/30/22 10/30/22 Range/Units 05:09 06:06 WBC (4.50-10.00) X 10*3/uL MCHC (32.0-37.0) g/dL Anion Gap 7.10 L (10.00-18.00) mmol/L Glucose 180 H (70-110) mg/dL POC Glucose (mg/dL) 162 H (70-110) mg/dL Calcium 8.6 L (8.7-10.3) mg/dL AST 11 L (14-35) U/L Albumin 3.2 L (3.8-4.9) g/dL Albumin/Globulin Ratio 1.05 L (1.60-3.17) g/dL Microbiology - Last 24 Hours (Table) 10/29/22 16:40 Gram Stain - Preliminary Foot - Right Wound Culture - Preliminary 10/28/22 20:30 Gram Stain - Preliminary Foot - Right Wound Culture - Preliminary 10/28/22 21:11 Blood Culture - Preliminary Blood No Growth after 24 hours 10/29/22 16:40 Wound Culture - Preliminary Foot - Right 10/29/22 16:40 Anaerobic Culture - Preliminary Foot - Right 10/29/22 16:40 Anaerobic Culture - Preliminary Foot - Right Assessment and Plan (1) Non-pressure chronic ulcer of other part of right foot with fat layer exposed Current Visit: Yes Status: Acute Code(s): L97.512 - NON-PRS CHRONIC ULCER OTH PRT RIGHT FOOT W FAT LAYER EXPOSED SNOMED Code(s): 63059296792264133 (2) Type 2 diabetes mellitus with foot ulcer Current Visit: Yes Status: Acute Code(s): E11.621 - TYPE 2 DIABETES MELLITUS WITH FOOT ULCER; L97.509 - NON-PRESSURE CHRONIC ULCER OTH PRT UNSP FOOT W UNSP SEVERITY SNOMED Code(s): 129719240
[2022-10-30 11:51] LABS: African American GFR (CKD) >90 (>60 ml/min/1.73 sqM); Anion Gap 5 mmol/L; Blood Urea Nitrogen 11 mg/dL (9-20); Calcium 8.3 mg/dL (8.4-10.2); Carbon Dioxide 25 mmol/L (22-30); Chloride 107 mmol/L (98-107); Glucose 189 mg/dL (74-99); Non-African American GFR(CKD) >90 (>60 ml/min/1.73 sqM); Potassium 4.2 mmol/L (3.5-5.1); Sodium 137 mmol/L (137-145)
[2022-10-30 12:33] LABS: Glucose,Whole Blood 178 mg/dL (70-110)
--- NOTE | 2022-10-30 14:17 | CDI ---
Documentation Clarification Form Date: 10/30/2022 2:12:15 PM From: Azul Harrell RN, CCDS Email: [email or web address] Admit Date: 10/28/2022 9:20:00 PM Patient Name: Jamari Del Toro Visit Number: [id number] Discharge Date: ATTENTION: The Clinical Documentation Specialists (CDI) and [facility] Coding Staff appreciate your assistance in clarifying documentation. Please respond to the clarification below the line at the bottom and electronically sign. The CDI & [facility] Coding staff will review the response and follow-up if needed. Please note: Queries are made part of the Legal Health Record. If you have any questions, please contact the author of this message via ITS. Dr. Sesar Brian An area of debridement was done per the Operative note. Additional clarification regarding the procedure is requested. History/Risk Factors: DM, diabetic foot ulcer. Admitted for fever, cellulitis of the right foot with retained foreign body. Clinical Indicators: redness, swelling and pain to the right foot. Cellulitis right foot. 10/28 foot xray: Linear radiopaque foreign body in the lateral right foot near the distal left fifth metatarsal shaft. Treatment: Op note: "Incision and drainage right foot. Retained foreign body right foot. The foreign body was able to be grasped and removed entirely. Blunt instrumentation was then used to follow the course of erythema on the plantar aspect of the foot. There was some tunneling within the subcutaneous tissue from lateral to medial. This area was fully opened and debrided with a curette." Please clarify the type of procedure performed: [ X ] Excisional debridement (the removal of necrotic, devitalized tissue or slough by means of cutting away of tissue) [ ] Non-excisional debridement (the removal of necrotic, devitalized tissue or slough by means of flushing, brushing, or washing. (Irrigation) [ ] Other; please specify [ ] Unable to determine Five elements required for accurate and compliant documentation of a debridement: Technique used (e.g., excisional, excised, cutting, brushing, jet lavage etc.) Instrument(s) used (e.g., scalpel, curette, etc.) Nature of the tissue removed (e.g., necrotic, devitalized tissues, non-viable tissue, etc.) Appearance and size of the wound (e.g., down to fresh bleeding tissue, 7cm x 10cm, etc.) Depth of the debridement* (e.g., skin, subcutaneous tissue, fascia, muscle, bone, etc.) MTDD
--- NOTE | 2022-10-30 16:53 | P.PN ---
Subjective Progress Note Date: 10/30/22 Hospital course: Patient is a 62-year-old male with a past medical history of [id number] diabetes mellitus and hyperlipidemia. He presented to the emergency department on 03/30/23 for evaluation of right foot ulcer. Patient has ulcer/wound to right lateral foot. He underwent full evaluation in the emergency department. CBC and CMP were completed. CBC revealed leukocytosis with WBC count of 14.1 and CMP was unremarkable with the exception of elevated alkaline phosphatase of 128. CRP was elevated at 14.4 and ESR elevated at 70. X-ray right foot was completed and radiology report reviewed stating linear radiopaque foreign body in the lateral right foot near the distal fifth metatarsal shaft, no evidence of fracture. Patient was started on IV antibiotics of vancomycin and cefepime and was admitted under our services with consultation to block cableman and infectious disease. On 10/01/22 patient underwent I&D with removal of foreign body with Dr. Brian. Cultures obtained and sent to lab for analysis at this time. Physical exam: Patient seen and fully evaluated at bedside this morning. Patient currently reports controlled pain and denies having any complaints or concerns. He is status post incision and drainage and dressing is in place to right foot and currently clean dry and intact. Vital signs reviewed and stable. Morbidly obese. General: Nontoxic, no distress and appears stated age. Derm: Skin warm and dry, normal coloration for ethnicity. Head: Atraumatic, normocephalic and symmetric. Eyes: EOMs intact, no lid lag, and anicteric sclera Mouth: no lip lesions, mucus membranes moist Cardiovascular: regular rate and rhythm with normal S1S2, no murmur, positive posterior tibial pulses bilaterally, and cap refill < 2 seconds. Lungs: Respirations even, regular, and unlabored on room air. Lungs CTA bilaterally, no rhonchi, no rales, no wheezing, and no accessory muscle usage. Abdominal: soft, nontender to palpation, no guarding, no appreciable organomegaly Ext: ROM intact. No gross muscle atrophy, no edema, no contractures. Dressing right foot covered with Quan dressing and currently clean dry and intact. Neuro: Speech clear, face symmetrical and CN II-XII grossly intact with no noted focal neuro deficits Psych: Alert and oriented to person, place, time, and situation. Appropriate and pleasant affect. Assessment and Plan of Care: Infected Diabetic foot ulcer/wound with retained foreign body Type 2 diabetes mellitus with hyperglycemia Morbid obesity with BMI 38.4 kg/m -Initial WBC count of 14.1 with ESR of 70 and CRP of 14.4. -Orthopedic/block cableman following and took patient for incision and drainage with removal of foreign body 10/29/22. -Continue IV antibiotics with vancomycin 2000 mg every 8 hours and cefepime 2 g every 8 hours. Vancomycin trough is therapeutic at 17.3. Renal function stable with BUN 11, creatinine 0.58, and GFR greater than 90. -Orders place for repeat morning BMP to follow renal function closely and vancomycin trough while on vancomycin to monitor for any signs of renal toxicity caused by vancomycin. -We will continue to hold oral hypoglycemic agents and continue with NovoLog sliding scale to maintain tight glycemic control throughout hospitalization to optimize wound healing. Blood glucose levels have ranged between 139 and 230 o rocio the past 24 hours. -Infectious disease following. Reviewed note in chart. -Wound cultures and blood cultures obtained and currently showing no growth to date, will follow-up on results. CODE STATUS: Full code DVT prophylaxis: Heparin Discussed with: Patient and RN Anticipated discharge date: Clinical course to determine Anticipated discharge place: Home Patient was seen independently by Nurse Pracitioner. This document was prepared using [employer] dictation software. Please allow for errors in template fitter, while rare they do occur. Objective - Vital Signs Vital signs: Vital Signs Temp 98.2 F 10/30/22 02:35 Pulse 71 10/30/22 02:35 Resp 18 10/30/22 02:35 BP 156/88 10/30/22 02:35 Pulse Ox 95 10/30/22 02:35 FiO2 Intake & Output 10/29/22 10/30/22 10/30/22 18:59 06:59 18:59 Intake Total 969 Output Total 5 Balance 964 Weight 135.624 kg Intake: IV 851 Oral 118 Output: Estimated Blood Loss 5 Other: Voiding Method Toilet Urinal Toilet Urinal Urinal # Voids 1 4 # Bowel Movements 1 - Labs CBC & Chem 7: 10/30/22 05:09 10/30/22 10:54 Labs: Abnormal Lab Results - Last 24 Hours (Table) 10/29/22 10/29/22 10/29/22 Range/Units 08:37 11:59 15:31 WBC (4.50-10.00) X 10*3/uL MCHC (32.0-37.0) g/dL Anion Gap (10.00-18.00) mmol/L Creatinine 0.52 L (0.66-1.25) mg/dL Glucose 215 H (74-99) mg/dL POC Glucose (mg/dL) 196 H 142 H (70-110) mg/dL Calcium (8.7-10.3) mg/dL AST (14-35) U/L Albumin (3.8-4.9) g/dL Albumin/Globulin Ratio (1.60-3.17) g/dL 10/29/22 10/29/22 10/29/22 Range/Units 16:53 17:41 21:04 WBC (4.50-10.00) X 10*3/uL MCHC (32.0-37.0) g/dL Anion Gap (10.00-18.00) mmol/L Creatinine (0.66-1.25) mg/dL Glucose (74-99) mg/dL POC Glucose (mg/dL) 139 H 157 H 230 H (70-110) mg/dL Calcium (8.7-10.3) mg/dL AST (14-35) U/L Albumin (3.8-4.9) g/dL Albumin/Globulin Ratio (1.60-3.17) g/dL 10/30/22 10/30/22 10/30/22 Range/Units 05:09 05:09 06:06 WBC 12.22 H (4.50-10.00) X 10*3/uL MCHC 31.0 L (32.0-37.0) g/dL Anion Gap 7.10 L (10.00-18.00) mmol/L Creatinine (0.66-1.25) mg/dL Glucose 180 H (74-99) mg/dL POC Glucose (mg/dL) 162 H (70-110) mg/dL Calcium 8.6 L (8.7-10.3) mg/dL AST 11 L (14-35) U/L Albumin 3.2 L (3.8-4.9) g/dL Albumin/Globulin Ratio 1.05 L (1.60-3.17) g/dL Microbiology - Last 24 Hours (Table) 10/29/22 16:40 Gram Stain - Preliminary Foot - Right Wound Culture - Preliminary 10/28/22 20:30 Gram Stain - Preliminary Foot - Right Wound Culture - Preliminary 10/28/22 21:11 Blood Culture - Preliminary Blood No Growth after 24 hours 10/29/22 16:40 Wound Culture - Preliminary Foot - Right 10/29/22 16:40 Anaerobic Culture - Preliminary Foot - Right 10/29/22 16:40 Anaerobic Culture - Preliminary Foot - Right
[2022-10-30 17:29] LABS: Glucose,Whole Blood 208 mg/dL (70-110)
[2022-10-30 20:38] LABS: Glucose,Whole Blood 168 mg/dL (70-110)
[2022-10-30] MEDS: ATORVASTATIN 20 MG TAB PO SCH (20:45)
--- NOTE | 2022-10-30 21:16 | P.PN ---
Subjective Progress Note Date: 10/30/22 Principal diagnosis: R diabetic foot infection Patient is a 62-year-old male past medical history began for insulin- dependent diabetes mellitus presenting to the ER for evaluation of right foot swelling and redness, patient did have x-rays of the foot concerning for foreign body in this patient is status post removal of the foreign body and deep culture done by Dr Brian on 10/29/2022. On today's evaluation that is 10/30/2022, the patient denies having any fever or any chills, the patient pain to the right foot is currently controlled no chest pain shortness of breath or cough no abdominal pain and no diarrhea Objective - Vital Signs Vital signs: Vital Signs Temp 97.7 F 10/30/22 08:00 Pulse 77 10/30/22 08:00 Resp 16 10/30/22 08:00 BP 147/87 10/30/22 08:00 Pulse Ox 97 10/30/22 08:00 FiO2 Intake & Output 10/29/22 10/30/22 10/30/22 18:59 06:59 18:59 Intake Total 969 Output Total 5 Balance 964 Weight 135.624 kg Intake: IV 851 Oral 118 Output: Estimated Blood Loss 5 Other: Voiding Method Toilet Urinal Toilet Urinal Urinal # Voids 1 4 # Bowel Movements 1 - Exam GENERAL DESCRIPTION: Middle-aged male lying in bed in no distress RESPIRATORY SYSTEM: Unlabored breathing , decreased breath sounds at bases HEART: S1 S2 regular rate and rhythm , ABDOMEN: Soft , no tenderness EXTREMITIES: Right foot wound is currently dressed no drainage on the dressing - Labs CBC & Chem 7: 10/31/22 06:10 10/31/22 06:10 Labs: Abnormal Lab Results - Last 24 Hours (Table) 10/29/22 10/29/22 10/29/22 Range/Units 15:31 16:53 17:41 WBC (4.50-10.00) X 10*3/uL MCHC (32.0-37.0) g/dL Anion Gap (10.00-18.00) mmol/L Creatinine (0.66-1.25) mg/dL Glucose (70-110) mg/dL POC Glucose (mg/dL) 142 H 139 H 157 H (70-110) mg/dL Calcium (8.7-10.3) mg/dL AST (14-35) U/L Albumin (3.8-4.9) g/dL Albumin/Globulin Ratio (1.60-3.17) g/dL 10/29/22 10/30/22 10/30/22 Range/Units 21:04 05:09 05:09 WBC 12.22 H (4.50-10.00) X 10*3/uL MCHC 31.0 L (32.0-37.0) g/dL Anion Gap 7.10 L (10.00-18.00) mmol/L Creatinine (0.66-1.25) mg/dL Glucose 180 H (70-110) mg/dL POC Glucose (mg/dL) 230 H (70-110) mg/dL Calcium 8.6 L (8.7-10.3) mg/dL AST 11 L (14-35) U/L Albumin 3.2 L (3.8-4.9) g/dL Albumin/Globulin Ratio 1.05 L (1.60-3.17) g/dL 10/30/22 10/30/22 10/30/22 Range/Units 06:06 10:54 12:32 WBC (4.50-10.00) X 10*3/uL MCHC (32.0-37.0) g/dL Anion Gap (10.00-18.00) mmol/L Creatinine 0.58 L (0.66-1.25) mg/dL Glucose 189 H (70-110) mg/dL POC Glucose (mg/dL) 162 H 178 H (70-110) mg/dL Calcium 8.3 L (8.7-10.3) mg/dL AST (14-35) U/L Albumin (3.8-4.9) g/dL Albumin/Globulin Ratio (1.60-3.17) g/dL Microbiology - Last 24 Hours (Table) 10/29/22 16:40 Gram Stain - Preliminary Foot - Right Wound Culture - Preliminary 10/28/22 20:30 Gram Stain - Preliminary Foot - Right Wound Culture - Preliminary 10/28/22 21:11 Blood Culture - Preliminary Blood No Growth after 24 hours 10/29/22 16:40 Wound Culture - Preliminary Foot - Right 10/29/22 16:40 Anaerobic Culture - Preliminary Foot - Right 10/29/22 16:40 Anaerobic Culture - Preliminary Foot - Right Assessment and Plan (1) Cellulitis of right foot Current Visit: Yes Status: Acute Code(s): L03.115 - CELLULITIS OF RIGHT LOWER LIMB SNOMED Code(s): 371354117 (2) Foot ulcer Current Visit: Yes Status: Acute Code(s): L97.509 - NON-PRESSURE CHRONIC ULC ER OTH PRT UNSP FOOT W UNSP SEVERITY SNOMED Code(s): 56761804 Plan: 1patient presented to hospital with sepsis and respiratory have low-grade fever elevated white count source is a right diabetic foot infection in this patient with extensive cellulitis involving the right foot and evidence of a foreign body possibly unrealized trauma and will need to cover for the both gram- positive skin anuel as well as gram-negative pathogen 2-penicillin allergy that would limit the number of antibiotics safe to use 3-Pt is s/p foot and ankle specialist evaluation and removal of the foreign body and deep culture as of 10/29/2022 4-Pt to conitnue with cefepeime and vancomycin pharmacy to dose with a target trough of 15 while watching kidney function and Vanco trough closely. Time with Patient: Less than 30
[2022-10-31] MEDS: VANCOMYCIN 2,000 MG in SODIUM CHLORIDE 0.9% 500 ML 500 ML IVPB SCH ×3 (04:48→20:59)
[2022-10-31 06:16] LABS: Glucose,Whole Blood 154 mg/dL (70-110)
[2022-10-31] MEDS: INSULIN ASPART (NovoLOG) 100 UNIT/ML VIAL SQ SCH ×4 (06:21→20:34)
[2022-10-31] MEDS: PENTOXIFYLLINE 400 MG TABLET.ER PO SCH ×3 (08:49→20:35)
[2022-10-31] MEDS: HEPARIN SODIUM,PORCINE/PF 5,000 UNIT/0.5 ML SYRINGE SQ SCH ×2 (08:50→16:18)
[2022-10-31] MEDS: CEFEPIME 2 GM in SODIUM CHLORIDE 0.9% 100 ML IVPB SCH ×2 (08:50→15:47)
[2022-10-31 09:26] LABS: HCT 40.6 % (39.6-50.0); MCH 28.5 pg (27.0-32.0); Mean Platelet Volume 9.1 fL (9.5-12.2); NRBC Per 100 WBC 0 /100 WBCS (0.0-0.0); Platelet Count 303 X 10*3/uL (140-440); RBC 4.56 X 10*6/uL (4.40-5.60); RDW 13.6 % (11.5-14.5); WBC 9.57 X 10*3/uL (4.50-10.00)
[2022-10-31 09:52] LABS: African American GFR (CKD) 116.4 (60.0-200.0); Anion Gap 9.6 mmol/L (10.00-18.00); BUN/Creat Ratio 12.57 Ratio (12.00-20.00); Blood Urea Nitrogen 8.8 mg/dL (9.0-27.0); Calcium 8.5 mg/dL (8.7-10.3); Carbon Dioxide 24.4 mmol/L (20.0-27.5); Non-African American GFR(CKD) 100.4 (60.0-200.0); Potassium 4.1 mmol/L (3.5-5.5)
[2022-10-31 11:34] LABS: Glucose,Whole Blood 304 mg/dL (70-110)
--- NOTE | 2022-10-31 15:10 | P.PN ---
Subjective Progress Note Date: 10/31/22 Principal diagnosis: R diabetic foot infection Patient is a 62-year-old male past medical history began for insulin- dependent diabetes mellitus presenting to the ER for evaluation of right foot swelling and redness, patient did have x-rays of the foot concerning for foreign body in this patient is status post removal of the foreign body and deep culture done by Dr Brian on 10/29/2022. On today's evaluation that is 10/31/2022, the patient remains to be afebrile, the patient pain to the right foot has decreased in intensity, the patient denies chest pain shortness of breath or cough no abdominal pain and no diarrhea Objective - Vital Signs Vital signs: Vital Signs Temp 98.1 F 10/31/22 07:51 Pulse 75 10/31/22 07:51 Resp 20 10/31/22 07:51 BP 163/91 10/31/22 07:51 Pulse Ox 95 10/31/22 07:51 FiO2 Intake & Output 10/30/22 10/31/22 10/31/22 18:59 06:59 18:59 Intake Total 118 120 Output Total 725 Balance 118 -725 120 Intake: Oral 118 120 Output: Urine 725 Other: Voiding Method Toilet Toilet Urinal Urinal # Voids 1 1 1 - Exam GENERAL DESCRIPTION: Middle-aged male lying in bed in no distress RESPIRATORY SYSTEM: Unlabored breathing , decreased breath sounds at bases HEART: S1 S2 regular rate and rhythm , ABDOMEN: Soft , no tenderness EXTREMITIES: Right foot wound is currently dressed no drainage on the dressing - Labs CBC & Chem 7: 10/31/22 06:10 10/31/22 06:10 Labs: Abnormal Lab Results - Last 24 Hours (Table) 10/30/22 10/30/22 10/30/22 Range/Units 12:32 17:27 20:36 MPV (9.5-12.2) fL Anion Gap (10.00-18.00) mmol/L BUN (9.0-27.0) mg/dL Glucose (70-110) mg/dL POC Glucose (mg/dL) 178 H 208 H 168 H (70-110) mg/dL Calcium (8.7-10.3) mg/dL 10/31/22 10/31/22 10/31/22 Range/Units 06:10 06:10 06:15 MPV 9.1 L (9.5-12.2) fL Anion Gap 9.60 L (10.00-18.00) mmol/L BUN 8.8 L (9.0-27.0) mg/dL Glucose 166 H (70-110) mg/dL POC Glucose (mg/dL) 154 H (70-110) mg/dL Calcium 8.5 L (8.7-10.3) mg/dL 10/31/22 Range/Units 11:29 MPV (9.5-12.2) fL Anion Gap (10.00-18.00) mmol/L BUN (9.0-27.0) mg/dL Glucose (70-110) mg/dL POC Glucose (mg/dL) 304 H (70-110) mg/dL Calcium (8.7-10.3) mg/dL Microbiology - Last 24 Hours (Table) 10/28/22 20:30 Gram Stain - Final Foot - Right Wound Culture - Final 10/29/22 16:40 Gram Stain - Preliminary Foot - Right Wound Culture - Preliminary 10/28/22 21:11 Blood Culture - Preliminary Blood No Growth after 48 hours 10/29/22 16:40 Gram Stain - Preliminary Foot - Right Wound Culture - Preliminary Assessment and Plan (1) Cellulitis of right foot Current Visit: Yes Status: Acute Code(s): L03.115 - CELLULITIS OF RIGHT LOWER LIMB SNOMED Code(s): 439014547 (2) Foot ulcer Current Visit: Yes Status: Acute Code(s): L97.509 - NON-PRESSURE CHRONIC ULCER OTH PRT UNSP FOOT W UNSP SEVERITY SNOMED Code(s): 73098893 Plan: 1patient presented to hospital with sepsis and respiratory have low-grade fever elevated white count source is a right diabetic foot infection in this patient with extensive cellulitis involving the right foot and evidence of a foreign body possibly unrealized trauma and will need to cover for the both gram- positive skin anuel as well as gram-negative pathogen 2-penicillin allergy that would limit the number of antibiotics safe to use 3-Pt is s/p foot and ankle specialist evaluation and removal of the foreign body and deep culture as of 10/29/2022, which are currently pending 4-Pt to conitnue with cefepeime and vancomycin, the discharge antibiotic on the basis of final culture Time with Patient: Less than 30
[2022-10-31 17:20] LABS: Glucose,Whole Blood 189 mg/dL (70-110)
--- NOTE | 2022-10-31 17:40 | P.PN ---
Subjective Progress Note Date: 10/31/22 Hospital course: Patient is a 62-year-old male with a past medical history of cqu-[id number]-[id number] diabetes mellitus and hyperlipidemia. He presented to the emergency department on 03/30/23 for evaluation of right foot ulcer. Patient has ulcer/wound to right lateral foot. He underwent full evaluation in the emergency department. CBC and CMP were completed. CBC revealed leukocytosis with WBC count of 14.1 and CMP was unremarkable with the exception of elevated alkaline phosphatase of 128. CRP was elevated at 14.4 and ESR elevated at 70. X-ray right foot was completed and radiology report reviewed stating linear radiopaque foreign body in the lateral right foot near the distal fifth metatarsal shaft, no evidence of fracture. Patient was started on IV antibiotics of vancomycin and cefepime and was admitted under our services with consultation to gunstock spray unit adjuster and infectious disease. On 10/01/22 patient underwent I&D with removal of foreign body with Dr. Brian. Cultures obtained and sent to lab for analysis at this time. Physical exam: Patient seen and fully evaluated at bedside this morning. He was sleeping and easily awoken via verbal stimuli. Patient states he had a difficult time sleeping overnight but was up in a breakfast and now going back to sleep for a little while. Patient denies having any needs or complaints at this time. Vital signs reviewed and stable. Morbidly obese. General: Nontoxic, no distress and appears stated age. Derm: Skin warm and dry, normal coloration for ethnicity. Head: Atraumatic, normocephalic and symmetric. Eyes: EOMs intact, no lid lag, and anicteric sclera Mouth: no lip lesions, mucus membranes moist Cardiovascular: regular rate and rhythm with normal S1S2, no murmur, positive posterior tibial pulses bilaterally, and cap refill < 2 seconds. Lungs: Respirations even, regular, and unlabored on room air. Lungs CTA bilaterally, no rhonchi, no rales, no wheezing, and no accessory muscle usage. Abdominal: soft, nontender to palpation, no guarding, no appreciable organomegaly Ext: ROM intact. No gross muscle atrophy, no edema, no contractures. Dressing right foot covered with Quan dressing and currently clean dry and intact. Neuro: Speech clear, face symmetrical and CN II-XII grossly intact with no noted focal neuro deficits Psych: Alert and oriented to person, place, time, and situation. Appropriate and pleasant affect. Assessment and Plan of Care: Infected Diabetic foot ulcer/wound with retained foreign body Type 2 diabetes mellitus with hyperglycemia Morbid obesity with BMI 38.4 kg/m -Initial WBC count of 14.1 with ESR of 70 and CRP of 14.4. -Orthopedic/gunstock spray unit adjuster following and took patient for incision and drainage with removal of foreign body 10/29/22. -Continue IV antibiotics with vancomycin 2000 mg every 8 hours and cefepime 2 g every 8 hours. Vancomycin trough is therapeutic at 17.3. Renal function stable with BUN 8.8, creatinine 0.7, and GFR of 100.4. -Orders place for repeat morning BMP to follow renal function closely and va ncomycin trough while on vancomycin to monitor for any signs of renal toxicity caused by vancomycin. -We will continue to hold oral hypoglycemic agents and continue with NovoLog sliding scale to maintain tight glycemic control throughout hospitalization to optimize wound healing. Blood glucose levels have ranged between 162-304 over the past 24 hours. -Infectious disease following. Reviewed note in chart. -Wound cultures pending, however preliminary report showing rare polymorphonuclear leukocytes and gram-positive cocci -Blood culture showing no growth to date. CODE STATUS: Full code DVT prophylaxis: Heparin Discussed with: Patient and RN Anticipated discharge date: Clinical course to determine Anticipated discharge place: Home Patient was seen independently by Nurse Pracitioner. This document was prepared using [employer] dictation software. Please allow for errors in construction pit worker, while rare they do occur. Objective - Vital Signs Vital signs: Vital Signs Temp 98.1 F 10/31/22 07:51 Pulse 75 10/31/22 07:51 Resp 20 10/31/22 07:51 BP 163/91 10/31/22 07:51 Pulse Ox 95 10/31/22 07:51 FiO2 Intake & Output 10/30/22 10/31/22 10/31/22 18:59 06:59 18:59 Intake Total 118 120 Output Total 725 Balance 118 -725 120 Intake: Oral 118 120 Output: Urine 725 Other: Voiding Method Toilet Toilet Urinal Urinal # Voids 1 1 1 - Labs CBC & Chem 7: 10/31/22 06:10 10/31/22 06:10 Labs: Abnormal Lab Results - Last 24 Hours (Table) 10/30/22 10/30/22 10/30/22 Range/Units 10:54 12:32 17:27 MPV (9.5-12.2) fL Anion Gap (10.00-18.00) mmol/L BUN (9.0-27.0) mg/dL Creatinine 0.58 L (0.66-1.25) mg/dL Glucose 189 H (74-99) mg/dL POC Glucose (mg/dL) 178 H 208 H (70-110) mg/dL Calcium 8.3 L (8.4-10.2) mg/dL 10/30/22 10/31/22 10/31/22 Range/Units 20:36 06:10 06:10 MPV 9.1 L (9.5-12.2) fL Anion Gap 9.60 L (10.00-18.00) mmol/L BUN 8.8 L (9.0-27.0) mg/dL Creatinine (0.66-1.25) mg/dL Glucose 166 H (74-99) mg/dL POC Glucose (mg/dL) 168 H (70-110) mg/dL Calcium 8.5 L (8.4-10.2) mg/dL 10/31/22 Range/Units 06:15 MPV (9.5-12.2) fL Anion Gap (10.00-18.00) mmol/L BUN (9.0-27.0) mg/dL Creatinine (0.66-1.25) mg/dL Glucose (74-99) mg/dL POC Glucose (mg/dL) 154 H (70-110) mg/dL Calcium (8.4-10.2) mg/dL Microbiology - Last 24 Hours (Table) 10/29/22 16:40 Gram Stain - Preliminary Foot - Right Wound Culture - Preliminary 10/28/22 21:11 Blood Culture - Preliminary Blood No Growth after 48 hours 10/29/22 16:40 Gram Stain - Preliminary Foot - Right Wound Culture - Preliminary 10/28/22 20:30 Gram Stain - Preliminary Foot - Right Wound Culture - Preliminary
[2022-10-31 20:26] LABS: Glucose,Whole Blood 187 mg/dL (70-110)
[2022-10-31] MEDS: SODIUM CHLORIDE 0.9% 1,000 ML IV SCH (20:34)
[2022-10-31] MEDS: ATORVASTATIN 20 MG TAB PO SCH (20:35)
[2022-11-01] MEDS: HEPARIN SODIUM,PORCINE/PF 5,000 UNIT/0.5 ML SYRINGE SQ SCH ×3 (00:21→18:01)
[2022-11-01] MEDS: CEFEPIME 2 GM in SODIUM CHLORIDE 0.9% 100 ML IVPB SCH ×2 (00:21→08:42)
[2022-11-01] MEDS: VANCOMYCIN 2,000 MG in SODIUM CHLORIDE 0.9% 500 ML 500 ML IVPB SCH ×3 (04:32→20:47)
[2022-11-01] MEDS: INSULIN ASPART (NovoLOG) 100 UNIT/ML VIAL SQ SCH ×4 (05:58→21:00)
[2022-11-01 05:59] LABS: Glucose,Whole Blood 144 mg/dL (70-110)
[2022-11-01 06:38] LABS: African American GFR (CKD) >90 (>60 ml/min/1.73 sqM); Non-African American GFR(CKD) >90 (>60 ml/min/1.73 sqM)
[2022-11-01] MEDS: PENTOXIFYLLINE 400 MG TABLET.ER PO SCH ×3 (08:42→20:47)
[2022-11-01] MEDS: SODIUM CHLORIDE 0.9% 1,000 ML IV SCH ×2 (08:44→23:02)
[2022-11-01 11:43] LABS: Glucose,Whole Blood 204 mg/dL (70-110)
--- NOTE | 2022-11-01 14:16 | P.PN ---
Subjective Progress Note Date: 11/01/22 Hospital course: Patient is a 62-year-old male with a past medical history of ftq-ogzmyow-bmbybpdso diabetes mellitus and hyperlipidemia. He presented to the emergency department on 03/30/23 for evaluation of right foot ulcer. Patient has ulcer/wound to right lateral foot. He underwent full evaluation in the emergency department. CBC and CMP were completed. CBC revealed leukocytosis with WBC count of 14.1 and CMP was unremarkable with the exception of elevated alkaline phosphatase of 128. CRP was elevated at 14.4 and ESR elevated at 70. X-ray right foot was completed and radiology report reviewed stating linear radiopaque foreign body in the lateral right foot near the distal fifth metatarsal shaft, no evidence of fracture. Patient was started on IV antibiotics of vancomycin and cefepime and was admitted under our services with consultation to site lead and infectious disease. On 10/01/22 patient underwent I&D with removal of foreign body with Dr. Brian. Cultures obtained and sent to lab for analysis at this time. Physical exam: Patient seen and fully evaluated at bedside this morning. Patient awake but currently denies having any complaints or needs at this time. He does report having a rough night and stated he had some pounding/throbbing in his foot overnight but did not take any medications for this and states pain is controlled at this time. Patient denies having any other complaints including headache, lightheadedness, dizziness, chest pain, palpitations, shortness of breath, or any other complaints at this time. Vital signs reviewed and stable. Morbidly obese. General: Nontoxic, no distress and appears stated age. Derm: Skin warm and dry, normal coloration for ethnicity. Head: Atraumatic, normocephalic and symmetric. Eyes: EOMs intact, no lid lag, and anicteric sclera Mouth: no lip lesions, mucus membranes moist Cardiovascular: regular rate and rhythm with normal S1S2, no murmur, positive posterior tibial pulses bilaterally, and cap refill < 2 seconds. Lungs: Respirations even, regular, and unlabored on room air. Lungs CTA bilaterally, no rhonchi, no rales, no wheezing, and no accessory muscle usage. Abdominal: soft, nontender to palpation, no guarding, no appreciable organomegaly Ext: ROM intact. No gross muscle atrophy, no edema, no contractures. Dressing right foot covered with Quan dressing and currently clean dry and intact. Neuro: Speech clear, face symmetrical and CN II-XII grossly intact with no noted focal neuro deficits Psych: Alert and oriented to person, place, time, and situation. Appropriate and pleasant affect. Assessment and Plan of Care: Infected Diabetic foot ulcer/wound with retained foreign body Type 2 diabetes mellitus with hyperglycemia Morbid obesity with BMI 38.4 kg/m -Orthopedic/site lead following and took patient for incision and drainage with removal of foreign body 10/29/22. -Continue IV antibiotics with vancomycin 2000 mg every 8 hours and cefepime 2 g every 8 hours. Vancomycin trough is therapeutic at 17.3. Renal function stable with creatinine 0.50 and GFR greater than 90. -Orders place for repeat morning BMP to follow renal function closely and vancomycin trough while on vancomycin to monitor for any signs of renal toxicity caused by vancomycin. -We will continue to hold oral hypoglycemic agents and continue with NovoLog sliding scale to maintain tight glycemic control throughout hospitalization to optimize wound healing. Blood glucose levels have ranged between 154-304 over the past 24 hours. -Infectious disease following and discussed plan of care. Awaiting final wound cultures to determine need for IV antibiotics upon discharge. -Wound cultures pending, however preliminary report showing rare p olymorphonuclear leukocytes and presumptive staph aureus -Blood culture showing no growth to date. CODE STATUS: Full code DVT prophylaxis: Heparin Discussed with: Patient, infectious disease physician and RN Anticipated discharge date: Clinical course to determine Anticipated discharge place: Home with homecare versus SNF Patient was seen independently by Nurse Pracitioner. This document was prepared using [employer] dictation software. Please allow for errors in senior power plant operator, while rare they do occur. Objective - Vital Signs Vital signs: Vital Signs Temp 97.6 F 11/01/22 08:00 Pulse 76 11/01/22 08:00 Resp 20 11/01/22 08:00 BP 160/90 11/01/22 08:00 Pulse Ox 97 11/01/22 08:00 FiO2 Intake & Output 10/31/22 11/01/22 11/01/22 18:59 06:59 18:59 Intake Total 600 240 Balance 600 240 Intake: Oral 600 240 Other: Voiding Method Toilet # Voids 2 4 1 - Labs CBC & Chem 7: 10/31/22 06:10 11/01/22 06:04 Labs: Abnormal Lab Results - Last 24 Hours (Table) 10/31/22 10/31/22 10/31/22 Range/Units 06:10 11:29 17:16 Anion Gap 9.60 L (10.00-18.00) mmol/L BUN 8.8 L (9.0-27.0) mg/dL Creatinine (0.66-1.25) mg/dL Glucose 166 H (70-110) mg/dL POC Glucose (mg/dL) 304 H 189 H (70-110) mg/dL Calcium 8.5 L (8.7-10.3) mg/dL 10/31/22 11/01/22 11/01/22 Range/Units 20:25 05:57 06:04 Anion Gap (10.00-18.00) mmol/L BUN (9.0-27.0) mg/dL Creatinine 0.50 L (0.66-1.25) mg/dL Glucose (70-110) mg/dL POC Glucose (mg/dL) 187 H 144 H (70-110) mg/dL Calcium (8.7-10.3) mg/dL Microbiology - Last 24 Hours (Table) 10/29/22 16:40 Anaerobic Culture - Preliminary Foot - Right 10/29/22 16:40 Anaerobic Culture - Preliminary Foot - Right 10/28/22 21:11 Blood Culture - Preliminary Blood No Growth after 72 hours 10/29/22 16:40 Gram Stain - Preliminary Foot - Right Wound Culture - Preliminary Presumptive Staph aureus 10/29/22 16:40 Gram Stain - Final Foot - Right Wound Culture - Final 10/28/22 20:30 Gram Stain - Final Foot - Right Wound Culture - Final
[2022-11-01 17:33] LABS: Glucose,Whole Blood 168 mg/dL (70-110)
[2022-11-01 20:47] LABS: Glucose,Whole Blood 167 mg/dL (70-110)
[2022-11-01] MEDS: ATORVASTATIN 20 MG TAB PO SCH (20:47)
--- NOTE | 2022-11-01 23:21 | P.PN ---
Subjective Progress Note Date: 11/01/22 Principal diagnosis: R diabetic foot infection Patient is a 62-year-old male past medical history began for insulin- dependent diabetes mellitus presenting to the ER for evaluation of right foot swelling and redness, patient did have x-rays of the foot concerning for foreign body in this patient is status post removal of the foreign body and deep culture done by Dr Brian on 10/29/2022. On today's evaluation that is 11/01/2022, the patient continues to be afebrile, the patient pain to the right foot has decreased in intensity, the patient denies chest pain shortness of breath or cough no abdominal pain and no diarrhea with antibiotics Objective - Vital Signs Vital signs: Vital Signs Temp 97.6 F 11/01/22 08:00 Pulse 76 11/01/22 08:00 Resp 20 11/01/22 08:00 BP 160/90 11/01/22 08:00 Pulse Ox 97 11/01/22 08:00 FiO2 Intake & Output 10/31/22 11/01/22 11/01/22 18:59 06:59 18:59 Intake Total 600 240 Balance 600 240 Intake: Oral 600 240 Other: Voiding Method Toilet # Voids 2 4 1 - Exam GENERAL DESCRIPTION: Middle-aged male lying in bed in no distress RESPIRATORY SYSTEM: Unlabored breathing , decreased breath sounds at bases HEART: S1 S2 regular rate and rhythm , ABDOMEN: Soft , no tenderness EXTREMITIES: Right foot wound is currently stitched , redness decreased , no drainage - Labs CBC & Chem 7: 10/31/22 06:10 11/01/22 06:04 Labs: Abnormal Lab Results - Last 24 Hours (Table) 10/31/22 10/31/22 11/01/22 Range/Units 17:16 20:25 05:57 Creatinine (0.66-1.25) mg/dL POC Glucose (mg/dL) 189 H 187 H 144 H (70-110) mg/dL 11/01/22 11/01/22 Range/Units 06:04 11:38 Creatinine 0.50 L (0.66-1.25) mg/dL POC Glucose (mg/dL) 204 H (70-110) mg/dL Microbiology - Last 24 Hours (Table) 10/29/22 16:40 Anaerobic Culture - Preliminary Foot - Right 10/29/22 16:40 Anaerobic Culture - Preliminary Foot - Right 10/28/22 21:11 Blood Culture - Preliminary Blood No Growth after 72 hours 10/29/22 16:40 Gram Stain - Preliminary Foot - Right Wound Culture - Preliminary Presumptive Staph aureus 10/29/22 16:40 Gram Stain - Final Foot - Right Wound Culture - Final 10/28/22 20:30 Gram Stain - Final Foot - Right Wound Culture - Final Assessment and Plan (1) Cellulitis of right foot Current Visit: Yes Status: Acute Code(s): L03.115 - CELLULITIS OF RIGHT LOWER LIMB SNOMED Code(s): 912456918 (2) Foot ulcer Current Visit: Yes Status: Acute Code(s): L97.509 - NON-PRESSURE CHRONIC ULCER OTH PRT UNSP FOOT W UNSP SEVERITY SNOMED Code(s): 43586324 Plan: 1patient presented to hospital with sepsis and respiratory have low-grade fever elevated white count source is a right diabetic foot infection in this patient with extensive cellulitis involving the right foot and evidence of a foreign body possibly unrealized trauma and will need to cover for the both gram- positive skin anuel as well as gram-negative pathogen 2-penicillin allergy that would limit the number of antibiotics safe to use 3-Pt is s/p foot and ankle specialist evaluation and removal of the foreign body and deep culture as of 10/29/2022, which are currently growing MSSA 4-will DC cefepeime and vancomycin, start cefazolin 2gm q8hr Time with Patient: Less than 30
[2022-11-02] MEDS: HEPARIN SODIUM,PORCINE/PF 5,000 UNIT/0.5 ML SYRINGE SQ SCH ×2 (00:07→08:36)
[2022-11-02 06:28] LABS: Glucose,Whole Blood 161 mg/dL (70-110)
[2022-11-02] MEDS: INSULIN ASPART (NovoLOG) 100 UNIT/ML VIAL SQ SCH ×2 (06:29→12:45)
[2022-11-02] MEDS: PENTOXIFYLLINE 400 MG TABLET.ER PO SCH (08:35)
[2022-11-02 08:57] VITALS: BP 145/81; PULSE 67; RESP 18; TEMP 98.1
[2022-11-02] MEDS: SODIUM CHLORIDE 0.9% 1,000 ML IV SCH (10:52)
[2022-11-02] MEDS ORDERED: VANCOMYCIN TROUGH DUE 1 EACH MISC MISCELLANE ONE (11:00)
[2022-11-02 11:55] LABS: African American GFR (CKD) >90 (>60 ml/min/1.73 sqM); Non-African American GFR(CKD) >90 (>60 ml/min/1.73 sqM)
--- NOTE | 2022-11-02 14:11 | P.DS ---
Providers Date of admission: 10/28/22 21:20 Expected date of discharge: 11/02/22 Attending physician: Hardik Hughes MD Consults: 10/28/22 21:20 Consult Physician Urgent Consulting Provider: Sesar Brian Consult Reason/Comments: foot wound, retained foreign body Do you want consulting provider notified?: Yes Consult Physician Urgent Consulting Provider: Bre Benz Consult Reason/Comments: diabetic foot wound Do you want consulting provider notified?: Yes Primary care physician: Marjorie Ashraf [facility] Course: Discharge Diagnosis: Infected Diabetic foot ulcer/wound with retained foreign body. Orthopedic/automotive accessory installer following and took patient for incision and drainage with removal of foreign body 10/29/22. Patient was treated with IV antibiotics vancomycin and cefepime. Wound cultures were positive for MSSA and antibiotics were changed to cefazolin at this time. Patient cleared by infectious disease for discharge home on oral antibiotic Keflex 500 mg every 6 hours 14 more days. Type 2 diabetes mellitus with hyperglycemia. Morbid obesity with BMI 38.4 kg/m Hospital Course: Patient is a 62-year-old male with a past medical history of ghe-uagqryl-zlxxzstbs diabetes mellitus and hyperlipidemia. He presented to the emergency department on 03/30/23 for evaluation of right foot ulcer. Patient has ulcer/wound to right lateral foot. He underwent full evaluation in the emergency department. CBC and CMP were completed. CBC revealed leukocytosis with WBC count of 14.1 and CMP was unremarkable with the exception of elevated alkaline phosphatase of 128. CRP was elevated at 14.4 and ESR elevated at 70. X-ray right foot was completed and radiology report reviewed stating linear radiopaque foreign body in the lateral right foot near the distal fifth metatarsal shaft, no evidence of fracture. Patient was started on IV antibiotics of vancomycin and cefepime and was admitted under our services with consultation to automotive accessory installer and infectious disease. On 10/01/22 patient underwent I&D with removal of foreign body with Dr. Brian. Cultures obtained and sent to lab for analysis at this time. Patient was treated with IV antibiotics vancomycin and cefepime. Wound cultures were positive for MSSA and antibiotics were changed to cefazolin at this time. Patient cleared by infectious disease for discharge home on oral antibiotic Keflex 500 mg every 6 hours 14 more days. Patient being discharged home with [facility] visiting nurses home care and to follow up outpatient with primary care provider, infectious disease, podiatry, and wound care center. Patient denies having any complaints at this time, has not used pain medications and surgical procedure was completed. Vital signs stable with blood pressure 145/81 and heart rate 67. Blood glucose levels 161. Patient medically stable for discharge home at this time. Physical exam: Vital signs reviewed and stable. Morbidly obese. General: Nontoxic, no distress and appears stated age. Derm: Skin warm and dry, normal coloration for ethnicity. Head: Atraumatic, normocephalic and symmetric. Eyes: EOMs intact, no lid lag, and anicteric sclera Mouth: no lip lesions, mucus membranes moist Cardiovascular: regular rate and rhythm with normal S1S2, no murmur, positive posterior tibial pulses bilaterally, and cap refill < 2 seconds. Lungs: Respirations even, regular, and unlabored on room air. Lungs CTA bilaterally, no rhonchi, no rales, no wheezing, and no accessory muscle usage. Abdominal: soft, nontender to palpation, no guarding, no appreciable organomegaly Ext: ROM intact. No gross muscle atrophy, no edema, no contractures. Dressing right foot covered with Quan dressing and currently clean dry and intact. Neuro: Speech clear, face symmetrical and CN II-XII grossly intact with no noted focal neuro deficits Psych: Alert and oriented to person, place, time, and situation. Appropriate and pleasant affect. A total of 33 minutes of time were spent preparing this complex discharge summary. Pt was discharged on 11/02/22 at 2:09 PM. Patient was seen independently by Nurse Practitioner. This document was prepared using [employer] dictation software. Please allow for errors in grievance manager while rare they do occur. Patient Condition at Discharge: Stable Plan - Discharge Summary Discharge Rx Participant: No New Discharge Prescriptions: New Cephalexin [Keflex] 500 mg PO Q6HR #56 cap Continue Pentoxifylline 400 mg PO TID Empagliflozin [Jardiance] 25 mg PO DAILY glipiZIDE 10 mg PO BID Atorvastatin [Lipitor] 20 mg PO HS Discharge Medication List Pentoxifylline 400 mg PO TID 07/16/17 [History] Atorvastatin [Lipitor] 20 mg PO HS 10/28/22 [History] Empagliflozin [Jardiance] 25 mg PO DAILY 10/28/22 [History] glipiZIDE 10 mg PO BID 10/28/22 [History] Cephalexin [Keflex] 500 mg PO Q6HR #56 cap 11/02/22 [Rx] Follow up Appointment(s)/Referral(s): Marjorie Ashraf DPM [Primary Care Provider] - 1-2 days [facility] [NON-STAFF] - As Needed Bre Benz MD [STAFF PHYSICIAN] - 11/09/22 2:15 pm [facility] Visiting Nurse, [NON-STAFF] - 1-2 Days Patient Instructions/Handouts: Diabetic Foot Ulcers (DC) Activity/Diet/Wound Care/Special Instructions: Activity: As tolerated. Take breaks as needed. Diet: Heart healthy and carb consistent diet. Avoid salts, or foods with hidden salts such as canned or boxed foods and frozen dinners. Extra salt makes your heart work harder and traps the fluid in your body for longer. Special Instructions: Take all of your medications as directed and remember to keep all of your doctor's appointments and follow-up as needed. Thank you for allowing us to participate in your care, it was truly a pleasure having you for our patient!!! Discharge Disposition: HOME WITH HOME HEALTH SERVICES
--- NOTE | 2022-11-02 22:59 | P.PN ---
Subjective Progress Note Date: 11/02/22 Principal diagnosis: R diabetic foot infection Patient is a 62-year-old male past medical history began for insulin- dependent diabetes mellitus presenting to the ER for evaluation of right foot swelling and redness, patient did have x-rays of the foot concerning for foreign body in this patient is status post removal of the foreign body and deep culture done by Dr Brian on 10/29/2022. On today's evaluation that is 11/02/2022, the patient remains to be afebrile, the patient pain to the right foot has decreased in intensity, the patient denies chest pain shortness of breath or cough no abdominal pain and no diarrhea with antibiotics, patient is feeling better wants to go home Objective - Vital Signs Vital signs: Vital Signs Temp 98.1 F 11/02/22 08:00 Pulse 67 11/02/22 08:00 Resp 18 11/02/22 08:00 BP 145/81 11/02/22 08:00 Pulse Ox 95 11/02/22 08:00 FiO2 Intake & Output 11/01/22 11/02/22 11/02/22 18:59 06:59 18:59 Intake Total 480 118 Balance 480 118 Intake: Oral 480 118 Other: Voiding Method Toilet # Voids 1 3 - Exam GENERAL DESCRIPTION: Middle-aged male lying in bed in no distress RESPIRATORY SYSTEM: Unlabored breathing , decreased breath sounds at bases HEART: S1 S2 regular rate and rhythm , ABDOMEN: Soft , no tenderness EXTREMITIES: Right foot wound is currently dressed no drainage - Labs CBC & Chem 7: 10/31/22 06:10 11/02/22 11:23 Labs: Abnormal Lab Results - Last 24 Hours (Table) 11/01/22 11/01/22 11/02/22 Range/Units 17:24 20:46 06:27 Creatinine (0.66-1.25) mg/dL POC Glucose (mg/dL) 168 H 167 H 161 H (70-110) mg/dL 11/02/22 Range/Units 11:23 Creatinine 0.50 L (0.66-1.25) mg/dL POC Glucose (mg/dL) (70-110) mg/dL Microbiology - Last 24 Hours (Table) 10/28/22 21:11 Blood Culture - Preliminary Blood No Growth after 96 hours 10/29/22 16:40 Gram Stain - Final Foot - Right Wound Culture - Final Staphylococcus aureus Assessment and Plan (1) Cellulitis of right foot Status: Acute Code(s): L03.115 - CELLULITIS OF RIGHT LOWER LIMB SNOMED Code(s): 632240587 (2) Foot ulcer Status: Acute Code(s): L97.509 - NON-PRESSURE CHRONIC ULCER OTH PRT UNSP FOOT W UNSP SEVERITY SNOMED Code(s): 98273237 Plan: 1patient presented to hospital with sepsis and respiratory have low-grade fever elevated white count source is a right diabetic foot infection in this patient with extensive cellulitis involving the right foot and evidence of a foreign body possibly unrealized trauma and will need to cover for the both gram- positive skin anuel as well as gram-negative pathogen 2-penicillin allergy that would limit the number of antibiotics safe to use 3-patient is status post foot and ankle specialist evaluation and removal of the foreign body and deep culture as of 10/29/2022, which are currently growing MSSA, anaerobic cultures negative Patient to finish therapy with oral Keflex prescription sent to the pharmacy and close outpatient follow-up discussed with the admitting team
== END 2022-11-02 14:41 | disposition home health service (06) | DRG 623 ==
LOC: EEVIPCON 15:55 → EC 15:55 → 5NMEDONC 21:20 → 6NMEDSUR 10-29 05:06
PROVIDERS: ADMIT Internal Medicine; ATTEND Internal Medicine
PROC: 0JBQ0ZZ Excision of Right Foot Subcutaneous Tissue and Fascia, Open Approach (ICD-10-PCS; 2022-10-29)
PROC: 0JCQ0ZZ Extirpation of Matter from Right Foot Subcutaneous Tissue and Fascia, Open Approach (ICD-10-PCS; 2022-10-29)
PROC: 0Y9M0ZZ Drainage of Right Foot, Open Approach (ICD-10-PCS; principal; 2022-10-29 14:20)
DX: E11.621 Type 2 diabetes mellitus with foot ulcer (principal); L03.115 Cellulitis of right lower limb; M79.5 Residual foreign body in soft tissue; L97.512 Non-pressure chronic ulcer of other part of right foot with fat layer exposed; E66.01 Morbid (severe) obesity due to excess calories; E78.5 Hyperlipidemia, unspecified; I10 Essential (primary) hypertension; W45.8XXA Other foreign body or object entering through skin, initial encounter; Z79.84 Long term (current) use of oral hypoglycemic drugs; Z68.38 Body mass index [BMI] 38.0-38.9, adult; B95.61 Methicillin susceptible Staphylococcus aureus infection as the cause of diseases classified elsewhere; E11.51 Type 2 diabetes mellitus with diabetic peripheral angiopathy without gangrene; E11.628 Type 2 diabetes mellitus with other skin complications; G40.909 Epilepsy, unspecified, not intractable, without status epilepticus; M19.90 Unspecified osteoarthritis, unspecified site; E11.42 Type 2 diabetes mellitus with diabetic polyneuropathy; Z79.899 Other long term (current) drug therapy; Z95.810 Presence of automatic (implantable) cardiac defibrillator; Z88.0 Allergy status to penicillin; Z87.81 Personal history of (healed) traumatic fracture
CPT/HCPCS: 36415; 80048; 80053; 80202; 81001; 82565; 83605; 83735; 85025; 85027; 85652; 86140; 87040; 87070; 87075; 87077; 87186; 87205; 96365; 96366; 96367; 96368; 99284

== ENCOUNTER 2024-05-24 09:58 | Observation (INO) | payer MEDICARE, OTHER ==
--- NOTE | 2024-05-24 10:52 | ED ---
Weakness HPI - General Chief complaint: Weakness Stated complaint: storke like symptoms Time Seen by Provider: 05/24/24 10:11 Source: patient, EMS, RN notes reviewed Mode of arrival: EMS Limitations: no limitations - History of Present Illness Initial comments: This is a 64-year-old male who presents to the emergency department for a bout of left upper extremity weakness. States that this morning he had woken up and was sitting on his bed talking to his niece on the phone. Around 8:30 AM he started to feel like his left arm was weak. This lasted about 45 minutes. He did not develop this sensation in his lower extremities, face, or elsewhere in the body. States that it was all localized to the arm. He is unsure how exactly to describe this sensation. States that it has since resolved. He had his niece call EMS due to concern for a stroke. Denies any history of heart attacks or strokes. Not taking any blood thinners. He does also note increasing shortness of breath and coughing over the last couple of days. Patient is absolutely filthy and covered in dirt. He has dirt and stool all over his feet, which is reportedly his dog's stool. EMS noted his house to be a mess with stool all over the floor. - Related Data Home Medications Medication Instructions Recorded Confirmed Atorvastatin [Lipitor] 20 mg PO HS 10/28/22 05/24/24 Empagliflozin [Jardiance] 25 mg PO DAILY 10/28/22 05/24/24 glipiZIDE 10 mg PO BID 10/28/22 05/24/24 Aspirin EC [Ecotrin Low Dose] 81 mg PO DAILY 05/24/24 05/24/24 Cephalexin [Keflex] 500 mg PO Q6H 05/24/24 05/24/24 INSULIN ASPART (NovoLOG) [NovoLOG See Protocol SQ AC-TID 05/24/24 05/24/24 (formulary)] Allergies Allergy/AdvReac Type Severity Reaction Status Date / Time Penicillins Allergy Rash/Hives Verified 05/24/24 10:55 Review of Systems ROS Statement: Those systems with pertinent positive or pertinent negative responses have been documented in the HPI. ROS Other: All systems not noted in ROS Statement are negative. Past Medical History Past Medical History: Asthma, Diabetes Mellitus, Hypertension, Osteoarthritis (OA), Seizure Disorder, Vascular Disorder Additional Past Medical History / Comment(s): edema and open wounds to right leg History of Any Multi-Drug Resistant Organisms: None Reported Past Surgical History: Appendectomy, Cholecystectomy, Orthopedic Surgery Additional Past Surgical History / Comment(s): alcira in left leg from fractured femur, colonoscopy Past Anesthesia/Blood Transfusion Reactions: No Reported Reaction Past Psychological History: No Psychological Hx Reported Smoking Status: Never smoker Past Alcohol Use History: None Reported Past Drug Use History: None Reported - Past Family History Mother Family Medical History: Coronary Artery Disease (CAD), CVA/TIA Father Family Medical History: Dementia General Exam Limitations: no limitations General appearance: alert, in no apparent distress Head exam: Present: atraumatic, normocephalic, normal inspection Respiratory exam: Present: normal lung sounds bilaterally. Absent: respiratory distress, wheezes, rales, rhonchi, stridor Cardiovascular Exam: Present: regular rate, normal rhythm, normal heart sounds. Absent: systolic murmur, diastolic murmur, rubs, gallop, clicks Neurological exam: Present: alert, oriented X3, CN II-XII intact Expanded Cerebellar function: Finger to Nose: Normal, Heel to Browne: Normal, Romberg: Normal Motor strength exam: RUE: 5, LUE: 5, RLE: 5, LLE: 5 Psychiatric exam: Present: normal affect, normal mood Skin exam: Present: warm, dry, intact, normal color. Absent: rash Course Vital Signs 05/24/24 05/24/24 05/24/24 10:01 13:30 14:30 Temperature 98.4 F Pulse Rate 86 76 87 Respiratory 20 18 18 Rate Blood Pressure 177/94 170/94 175/92 O2 Sat by Pulse 96 96 98 Oximetry 05/24/24 05/24/24 05/24/24 15:33 18:04 19:24 Temperature Pulse Rate 88 88 89 Respiratory 18 18 18 Rate Blood Pressure 181/90 157/74 127/76 O2 Sat by Pulse 97 96 97 Oximetry Medical Decision Making - Medical Decision Making This is a 64 year old male who presents to the emergency department for left upper extremity weakness. Was pt. sent in by a medical professional or institution? @ -No Did you speak to anyone other than the patient for history? @ -No Did you review nursing and triage notes? @ -Yes, and I agree, it is accurate with regards to the patient's symptoms. Were old charts reviewed? @ -No Differential Diagnosis? @ -Differential CVA Ischemic stroke, hemorrhagic stroke, brain tumor, atypical migraine, Wernicke's encephalopathy, seizure, multiple sclerosis, meningitis, encephalitis, hypoglycemia, Guillain-Yo, electrolytes disturbance, myasthenia gravis.... This is not meant to be an all-inclusive list EKG interpreted by me (3pts min.)? @ -EKG interpreted by me demonstrating the following: Sinus rhythm. Ventricular rate 86 bpm, FL interval 228 ms, QRS duration 185 ms, QTc 481 ms. X-rays interpreted by me (1pt min.)? @ -Chest x-ray obtained. My interpretation identifies a right sided airspace opacity. CT interpreted by me (1pt min.)? @ -CT scan of the brain obtained. My interpretation identifies no evidence of acute intracranial hemorrhage or mass effect. CTA of the head and neck obtained. My interpretation identifies no aneurysm. U/S interpreted by me (1pt. min.)? @ -Not obtained What testing was considered but not performed? (CT, X-rays, U/S, labs)? Why? @ -None What meds were considered but not given? Why? @ -None Did you discuss the management of the patient with other professionals? @ -Yes, Dr. Pro, who accepts the patient for admission. Did you reconcile home meds? @ -No Was smoking cessation discussed for >3mins.? @ -No Was critical care preformed (if so, how long)? @ -No Were there social determinants of health that impacted care today? How? (Homelessness, low income, unemployed, alcoholism, drug addiction, transportation, low edu. Level, literacy, decrease access to med. care, residential, rehab)? @ -No Was there de-escalation of care discussed even if they declined? (Discuss DNR or withdrawal of care, Hospice)? @ -No What co-morbidities impacted this encounter? (DM, HTN, Smoking, COPD, CAD, Cancer, CVA, Hep., AIDS, mental health diagnosis, sleep apnea, morbid obesity)? @ -DM, HTN Was patient admitted / discharged? @ -Admitted. Patient's NIH on arrival was 0 on arrival and because symptoms had resolved, stroke network was not activated. Lab work relatively unremarkable aside from hyperglycemia with a glucose of 348. Patient has a history of diabetes, however when the certified pharmacy technician went to review me dications with the patient, it appears that all of his medicines are old and he is not taking anything correctly. CT scan of the brain and CTA of the head and neck revealed no acute process. Chest x-ray demonstrates right basilar patchy airspace opacities concerning for pneumonia. Patient admits to some coughing and shortness of breath. Patient does have many risk factors including uncontrolled diabetes, elevated blood pressure, and elevated cholesterol. He is also noncompliant with all medications, putting him at increased risk for CVA. Patient states that he is not comfortable with discharge home. Patient subsequently admitted to medicine for possible TIA and pneumonia. He was star enio on the pneumonia protocol with ceftriaxone and azithromycin. Consult placed for neurology regarding TIA. Case discussed with ED attending Dr. Youngblood. Undiagnosed new problem with uncertain prognosis? @ -None Drug Therapy requiring intensive monitoring for toxicity (Heparin, Nitro, Insulin, Cardizem)? @ -None Were any procedures done? @ -None Diagnosis/symptom? @ -TIA, pneumonia Acute, or Chronic, or Acute on Chronic? @ -Acute Uncomplicated (without systemic symptoms) or Complicated (systemic symptoms)? @ -Complicated Side effects of treatment? @ -None Exacerbation, Progression, or Severe Exacerbation] @ -Not applicable Poses a threat to life or bodily function? @ -Yes - Lab Data Result diagrams: 05/24/24 10:30 05/24/24 11:49 Lab Results 05/24/24 05/24/24 05/24/24 Range/Units 10:30 11:49 11:49 WBC 6.8 (3.8-10.6) k/uL RBC 5.14 (4.30-5.90) m/uL Hgb 15.1 (13.0-17.5) gm/dL Hct 47.3 (39.0-53.0) % MCV 92.1 (80.0-100.0) fL MCH 29.3 (25.0-35.0) pg MCHC 31.8 (31.0-37.0) g/dL RDW 14.0 (11.5-15.5) % Plt Count 251 (150-450) k/uL MPV 7.4 Neutrophils % 74 % Lymphocytes % 15 % Monocytes % 7 % Eosinophils % 2 % Basophils % 0 % Neutrophils # 5.0 (1.3-7.7) k/uL Lymphocytes # 1.1 (1.0-4.8) k/uL Monocytes # 0.5 (0-1.0) k/uL Eosinophils # 0.2 (0-0.7) k/uL Basophils # 0.0 (0-0.2) k/uL PT 10.4 (10.0-12.5) sec INR 0.9 (<1.2) APTT 21.4 L (22.0-30.0) sec Sodium (137-145) mmol/L Potassium (3.5-5.1) mmol/L Chloride (98-107) mmol/L Carbon Dioxide (22-30) mmol/L Anion Gap mmol/L BUN (9-20) mg/dL Creatinine (0.66-1.25) mg/dL Est GFR (CKD-EPI)AfAm (>60 ml/min/1.73 sqM) Est GFR (CKD-EPI)NonAf (>60 ml/min/1.73 sqM) Glucose (74-99) mg/dL Calcium (8.4-10.2) mg/dL Magnesium (1.6-2.3) mg/dL Total Bilirubin (0.2-1.3) mg/dL AST (17-59) U/L ALT (4-49) U/L Alkaline Phosphatase (38-126) U/L Creatine Kinase (55-170) U/L Troponin I <0.012 (0.000-0.034) ng/mL Total Protein (6.3-8.2) g/dL Albumin (3.5-5.0) g/dL Urine Color Urine Appearance (Clear) Urine pH (5.0-8.0) Ur Specific [place] (1.001-1.035) Urine Protein (Negative) Urine Glucose (UA) (Negative) Urine Ketones (Negative) Urine Blood (Negative) Urine Nitrite (Negative) Urine Bilirubin (Negative) Urine Urobilinogen (<2.0) mg/dL Ur Leukocyte Esterase (Negative) Urine RBC (0-5) /hpf Urine WBC (0-5) /hpf Ur Squamous Epith Cells (0-4) /hpf 05/24/24 05/24/24 Range/Units 11:49 14:36 WBC (3.8-10.6) k/uL RBC (4.30-5.90) m/uL Hgb (13.0-17.5) gm/dL Hct (39.0-53.0) % MCV (80.0-100.0) fL MCH (25.0-35.0) pg MCHC (31.0-37.0) g/dL RDW (11.5-15.5) % Plt Count (150-450) k/uL MPV Neutrophils % % Lymphocytes % % Monocytes % % Eosinophils % % Basophils % % Neutrophils # (1.3-7.7) k/uL Lymphocytes # (1.0-4.8) k/uL Monocytes # (0-1.0) k/uL Eosinophils # (0-0.7) k/uL Basophils # (0-0.2) k/uL PT (10.0-12.5) sec INR (<1.2) APTT (22.0-30.0) sec Sodium 135 L (137-145) mmol/L Potassium 4.5 (3.5-5.1) mmol/L Chloride 100 (98-107) mmol/L Carbon Dioxide 28 (22-30) mmol/L Anion Gap 7 mmol/L BUN 10 (9-20) mg/dL Creatinine 0.56 L (0.66-1.25) mg/dL Est GFR (CKD-EPI)AfAm >90 (>60 ml/min/1.73 sqM) Est GFR (CKD-EPI)NonAf >90 (>60 ml/min/1.73 sqM) Glucose 348 H (74-99) mg/dL Calcium 9.5 (8.4-10.2) mg/dL Magnesium 1.8 (1.6-2.3) mg/dL Total Bilirubin 0.9 (0.2-1.3) mg/dL AST 18 (17-59) U/L ALT 14 (4-49) U/L Alkaline Phosphatase 102 (38-126) U/L Creatine Kinase 62 (55-170) U/L Troponin I (0.000-0.034) ng/mL Total Protein 7.0 (6.3-8.2) g/dL Albumin 3.9 (3.5-5.0) g/dL Urine Color Colorless Urine Appearance Clear (Clear) Urine pH 5.5 (5.0-8.0) Ur Specific [place] >1.050 H (1.001-1.035) Urine Protein 1+ H (Negative) Urine Glucose (UA) 4+ H (Negative) Urine Ketones 1+ H (Negative) Urine Blood Negative (Negative) Urine Nitrite Negative (Negative) Urine Bilirubin Negative (Negative) Urine Urobilinogen <2.0 (<2.0) mg/dL Ur Leukocyte Esterase Negative (Negative) Urine RBC 2 (0-5) /hpf Urine WBC 1 (0-5) /hpf Ur Squamous Epith Cells 4 (0-4) /hpf - Radiology Data Radiology results: report reviewed, image reviewed Disposition Clinical Impression: TIA (transient ischemic attack), Pneumonia Disposition: ADMITTED IP TO THIS [facility] Time of Disposition: 16:05
[2024-05-24 10:55] LABS: Basophils % (A) 0 %; Eosinophils # (A) 0.2 k/uL (0-0.7); Eosinophils % (A) 2 %; HCT 47.3 % (39.0-53.0); HGB 15.1 gm/dL (13.0-17.5); Lymphocytes # (A) 1.1 k/uL (1.0-4.8); Lymphocytes % (A) 15 %; MCH 29.3 pg (25.0-35.0); MCHC 31.8 g/dL (31.0-37.0); MCV 92.1 fL (80.0-100.0); Mean Platelet Volume 7.4; Monocytes # (A) 0.5 k/uL (0-1.0); Monocytes % (A) 7 %; Neutrophils % (A) 74 %; Platelet Count 251 k/uL (150-450); RBC 5.14 m/uL (4.30-5.90); WBC 6.8 k/uL (3.8-10.6)
--- NOTE | 2024-05-24 10:59 | XR ---
EXAMINATION TYPE: XR chest 2V DATE OF EXAM: 05/24/2024 10:55 AM COMPARISON: Chest radiographs from 08/03/2013 TECHNIQUE: XR chest 2V Frontal and lateral views of the chest. CLINICAL INDICATION:Male, 64 years old with history of altered mental status; FINDINGS: Lungs/Pleura: No pleural effusion or pneumothorax. Right basilar patchy airspace opacities. Pulmonary vascularity: Unremarkable. Heart/mediastinum: Cardiomediastinal silhouette is prominent in size. Musculoskeletal: No acute osseous pathology. IMPRESSION: Right basilar patchy airspace opacities concerning for pneumonia. [facility], , 05/24/2024 10:56 AM
[2024-05-24 12:19] LABS: ALT 14 U/L (4-49); AST 18 U/L (17-59); African American GFR (CKD) >90 (>60 ml/min/1.73 sqM); Albumin 3.9 g/dL (3.5-5.0); Alkaline Phosphatase 102 U/L (38-126); Anion Gap 7 mmol/L; Blood Urea Nitrogen 10 mg/dL (9-20); Calcium 9.5 mg/dL (8.4-10.2); Carbon Dioxide 28 mmol/L (22-30); Chloride 100 mmol/L (98-107); Creatine Kinase 62 U/L (55-170); Glucose 348 mg/dL (74-99); Magnesium 1.8 mg/dL (1.6-2.3); Non-African American GFR(CKD) >90 (>60 ml/min/1.73 sqM); Potassium 4.5 mmol/L (3.5-5.1); Sodium 135 mmol/L (137-145); Total Bilirubin 0.9 mg/dL (0.2-1.3)
[2024-05-24 12:52] LABS: INR 0.9 (<1.2); Partial Thromboplastin Time 21.4 sec (22.0-30.0); Prothrombin Time 10.4 sec (10.0-12.5)
--- NOTE | 2024-05-24 13:35 | CT ---
EXAMINATION TYPE: CT brain wo con CT DLP: 2108.3 mGycm, Automated exposure control for dose reduction was used. DATE OF EXAM: 05/24/2024 1:27 PM COMPARISON: None. CLINICAL INDICATION:Male, 64 years old with history of Neuro deficit, acute, stroke suspected, Left s christi weakness and tingling since 8 am this morning TECHNIQUE: Brain: Multiple axial CT images of the brain were obtained without IV contrast. . Coronal and sagitta l reformats reviewed. FINDINGS: Brain: Extra-axial spaces: No abnormal extra-axial fluid collections. Magna cisterna magna is suggested. Ventricular system: Within normal limits Cerebral parenchyma: No acute intraparenchymal hemorrhage or mass effect. The wayne-white junction is well differentiated. Scattered hypoattenuating areas are seen within the periventricular white matte r. Cerebellum: Unremarkable. Mass effect: No evidence of midline shift. Intracranial vasculature: Atherosclerotic calcifications of the intracranial vessels. Soft tissues: Normal. Calvarium/osseous structures: No depressed skull fracture. Paranasal sinuses and mastoid air cells: Clear Visualized orbits: Orbital contents are intact. IMPRESSION: 1. No acute intracranial process. 2. Nonspecific white matter changes, likely secondary to chronic small vessel ischemic disease. [facility], , 05/24/2024 1:33 PM
--- NOTE | 2024-05-24 13:40 | CT ---
EXAMINATION TYPE: CT angio head neck CT DLP: 2108.3 mGycm, Automated exposure control for dose reduction was used. DATE OF EXAM: 05/24/2024 1:27 PM COMPARISON: CT brain the same date. CLINICAL INDICATION:Male, 64 years old with history of Left upper extremity weakness; PHH, Left side weakness and tingling since 8 am this morning TECHNIQUE: Axially acquired helical CT angiogram of the head and neck was obtained with contrast util izing 75 cc of Isovue-370 administered intravenously. Axial images are supplemented with 3D reconstru ctions which were post-processed at an independent workstation. NASCET criteria used. FINDINGS: CTA HEAD: No evidence of acute intracranial hemorrhage, mass effect, or midline shift. The ventricles, sulci, a nd cisterns are unremarkable. The visualized portions of the internal carotid arteries, middle cerebral arteries, anterior cerebral arteries, and posterior cerebral arteries are patent. The basilar and vertebral arteries are patent. CTA NECK: Right Carotid System: The common carotid artery and external carotid artery are patent. Mild calcified plaque at the caroti d bifurcation. The carotid bifurcation demonstrates no evidence of hemodynamically significant stenos is. Moderate calcified plaque involving the cavernous portion of the internal carotid artery. Left Carotid System: The common carotid artery and external carotid artery are patent. Mild calcified plaque at the caroti d bifurcation extending into the proximal internal carotid artery. Approximately 10 % stenosis at the origin of the internal carotid artery. Moderate calcified plaque involving the cavernous portion of the internal carotid artery. Vertebral arteries are patent without evidence hemodynamically significant stenosis. The vertebral ar teries are codominant. There is a three-vessel aortic arch. The origins of the great vessels are patent. No evidence of hemo dynamically significant stenosis. Enlarged main pulmonary artery measuring up to 4.7 cm. Suggests pul monary arterial hypertension. Multilevel degenerative changes of the visualized spine. IMPRESSION: 1. No evidence of dissection of the cervical internal carotid arteries or vertebral arteries or any e vidence of significant stenosis at the carotid bifurcations. 2. No evidence of high-grade stenosis or intracranial aneurysm. [facility], , 05/24/2024 1:38 PM
[2024-05-24] MEDS ORDERED: PNEUMONIA PROTOCOL UTILIZED 1 EACH MISC PO PRN (14:10)
[2024-05-24] MEDS: ASPIRIN 81 MG PO STA (15:32)
[2024-05-24 15:37] LABS: Appearance,Urine Clear (Clear); Bilirubin,Urine Negative (Negative); Blood,Urine Negative (Negative); Color,Urine Colorless; Glucose,Urine (UA) 4+ (Negative); Ketones,Urine 1+ (Negative); Leukocyte Esterase,Urine Negative (Negative); Nitrite,Urine Negative (Negative); PH, Urine 5.5 (5.0-8.0); Protein,Urine 1+ (Negative); RBC,Urine 2 /hpf (0-5); Squamous Epithelial Cell,Urine 4 /hpf (0-4); Urobilinogen,Urine <2.0 mg/dL (<2.0); WBC,Urine 1 /hpf (0-5)
[2024-05-24 15:44] LABS: Specific Gravity,Urine >1.050 (1.001-1.035)
[2024-05-24] MEDS ORDERED: MORPHINE SULFATE 4 MG/ML SYRINGE IV PRN (16:06)
[2024-05-24] MEDS ORDERED: NALOXONE 0.4 MG/ML 1 ML VIAL IV PRN (16:06)
[2024-05-24] MEDS ORDERED: HYDROcodone/APAP 5-325MG 1 EACH TAB PO PRN (16:06)
[2024-05-24] MEDS ORDERED: ONDANSETRON 4 MG/2 ML VIAL IVP PRN (16:06)
[2024-05-24] MEDS ORDERED: ACETAMINOPHEN TAB 325 MG TAB PO PRN (16:06)
[2024-05-24] MEDS ORDERED: ALPRAZolam 0.25 MG TAB PO PRN (17:10)
[2024-05-24] MEDS ORDERED: CALCIUM CARBONATE 500 MG CHEWABLE PO PRN (17:10)
[2024-05-24] MEDS ORDERED: LACTULOSE 20 GM/30 ML CUP PO PRN (17:10)
[2024-05-24] MEDS ORDERED: MELATONIN 3 MG TABLET PO PRN (17:10)
[2024-05-24] MEDS ORDERED: DEXTROSE 50% SYRINGE 50 ML IVP PRN ×2 (17:11)
[2024-05-24 17:21] LABS: Glucose,Whole Blood 281 mg/dL (70-110)
[2024-05-24] MEDS: ENOXAPARIN 40 MG/0.4 ML SYRINGE SQ SCH (17:59)
[2024-05-24] MEDS: INSULIN ASPART (NovoLOG) 100 UNIT/ML VIAL SQ SCH (18:00)
[2024-05-24] MEDS: AZITHROMYCIN 500 MG in SODIUM CHLORIDE 0.9% 250 ML IVPB STA (19:26)
[2024-05-24] MEDS: ATORVASTATIN 20 MG TAB PO SCH (20:41)
[2024-05-24] MEDS: glipiZIDE 10 MG TAB PO SCH (20:41)
[2024-05-24 20:46] LABS: Glucose,Whole Blood 291 mg/dL (70-110)
[2024-05-25 08:08] LABS: Glucose,Whole Blood 197 mg/dL (70-110)
[2024-05-25] MEDS: ASPIRIN 81 MG PO SCH (08:35)
[2024-05-25] MEDS: DAPAGLIFLOZIN PROPANEDIOL 10 MG TABLET PO SCH (08:35)
[2024-05-25] MEDS: AZITHROMYCIN 500 MG TAB PO SCH (08:35)
[2024-05-25] MEDS ORDERED: PANTOPRAZOLE 40 MG/10 ML VIAL IV SCH (09:00)
[2024-05-25 16:57] LABS: Glucose,Whole Blood 134 mg/dL (70-110)
--- NOTE | 2024-05-25 20:42 | P.HPIM ---
History of Present Illness H&P Date: 05/25/24 Chief Complaint: Left arm weakness This is a pleasant 64-year-old patient, follows with Dr. Sesar Frenandes. Chronic stable medical condition include diabetes, hypertension, osteoarthritis,. Patient has diagnosis of seizures in the past. Not taking any more medications. When he woke up yesterday morning he felt he could not really use his left arm. His speech was also slurred. He spoke to his niece. Sent to the hospital. He says for after 3 hours approximately his speech and came back to normal. No change in vision. No headache. Yesterday also patient had a significant cough. Some green sputum. No fever no chills. Some decreased appetite. Patient does use a cane when he goes outside the house. Otherwise does use a walker sometimes inside the house. Review of systems: GEN.: Tired EYES: None HEENT: None NECK: None RESPIRATORY: As above] CARDIOVASCULAR: None GASTROINTESTINAL: None GENITOURINARY: None MUSCULOSKELETAL: None LYMPHATICS: None HEMATOLOGICAL: None PSYCHIATRY: None NEUROLOGICAL: Uses a cane and a walker Social history: Lives alone. No alcohol no smoking. Cane when he goes outside the house and walker inside the house. Specially in the morning Physical examination: VITAL SIGNS: 97.3, 90, 22, 165/95, 97% room air GENERAL: BMI 42.1, reclining bed awake watching television. EYES: Pupils equal. Conjunctiva delmy l. HEENT: External appearance of nose and ears normal, oral cavity grossly normal. NECK: JVD not raised; masses not palpable. HEART: First and second heart sounds are normal; no edema. LUNGS: Respiratory rate normal; clear to auscultation. ABDOMEN: Soft, nontender, liver spleen not palpable, no masses palpable. PSYCH: Alert and oriented x3; mood and affect delmy l. MUSCULOSKELETAL:No Clubbing/cyanosis;muscles-grossly intact NEUROLOGICAL: Cranial nerves grossly intact; no facial asymmetry, power and sensation grossly intact. LYMPHATICS: No lymph nodes palpable in the axilla and neck Investigation: Influenza type A, type B, RSV, COVID-19: Not detected May 24: White count 6.8 hemoglobin 15.1 platelets 251 sodium 135 potassium 4.5 creatinine 0.56 EKG tracing personally reviewed by me-normal sinus rhythm. Right bundle coleen block. Chest x-ray film personally reviewed by me-right basal infiltrate CT brain without contrast: Some chronic changes CTA head and neck: No stenosis. No dissection. Assessment plan: -Patient yesterday morning had an episode of left arm weakness.. Movement. Along with slurred speech. Reports symptoms lasted for about 3 hours. Resolved. Back to normal.: Suspect TIA Will need further workup including MRI to rule out a lacunar infarct -Right basal pneumonia suspect gram-negative organism IV ceftriaxone. Zithromax. -Diabetes mellitus type 2 on oral hypoglycemic Glipizide. Jardiance. Follow Accu-Cheks with sliding scale insulin -Primary osteoarthritis Tylenol as needed -Chronic gait dysfunction does use a cane and a walker -Full code Care was discussed with patient. Questions answered. Neurology is consulted. Past Medical History Past Medical History: Asthma, Diabetes Mellitus, Hypertension, Osteoarthritis (OA), Seizure Disorder, Vascular Disorder Additional Past Medical History / Comment(s): edema and open wounds to right leg History of Any Multi-Drug Resistant Organisms: None Reported Past Surgical History: Appendectomy, Cholecystectomy, Orthopedic Surgery Additional Past Surgical History / Comment(s): alcira in left leg from fractured femur, colonoscopy Past Anesthesia/Blood Transfusion Reactions: No Reported Reaction Past Psychological History: No Psychological Hx Reported Smoking Status: Never smoker Past Alcohol Use History: None Reported Past Drug Use History: None Reported - Past Family History Mother Family Medical History: Coronary Artery Disease (CAD), CVA/TIA Father Family Medical History: Dementia Medications and Allergies Home Medications Medication Instructions Recorded Confirmed Type Atorvastatin [Lipitor] 20 mg PO HS 10/28/22 05/24/24 History Empagliflozin [Jardiance] 25 mg PO DAILY 10/28/22 05/24/24 History glipiZIDE 10 mg PO BID 10/28/22 05/24/24 History Aspirin EC [Ecotrin Low Dose] 81 mg PO DAILY 05/24/24 05/24/24 History Cephalexin [Keflex] 500 mg PO Q6H 05/24/24 05/24/24 History INSULIN ASPART (NovoLOG) [NovoLOG See Protocol SQ AC-TID 05/24/24 05/24/24 Histo ry (formulary)] Allergies Allergy/AdvReac Type Severity Reaction Status Date / Time Penicillins Allergy Rash/Hives Verified 05/24/24 10:55 Physical Exam Vitals: Vital Signs Temp Pulse Resp BP Pulse Ox 05/25/24 08:41 97.3 F L 90 22 165/95 97 05/25/24 04:07 97.3 F L 82 18 151/85 97 05/24/24 22:30 97.8 F 84 17 169/98 98 05/24/24 20:45 79 18 157/83 96 05/24/24 19:24 89 18 127/76 97 05/24/24 18:04 88 18 157/74 96 05/24/24 15:33 88 18 181/90 97 05/24/24 14:30 87 18 175/92 98 05/24/24 13:30 76 18 170/94 96 Intake and Output 05/24/24 05/25/24 05/25/24 22:59 06:59 14:59 Output Total 160 Balance -160 Output: Urine 160 Other: # Voids 1 # Bowel Movements 1 Results CBC & Chem 7: 05/24/24 10:30 05/24/24 11:49 Labs: Abnormal Lab Results - Last 24 Hours (Table) 05/24/24 05/24/24 05/24/24 Range/Units 11:49 11:49 14:36 APTT 21.4 L (22.0-30.0) sec Sodium 135 L (137-145) mmol/L Creatinine 0.56 L (0.66-1.25) mg/dL Glucose 348 H (74-99) mg/dL POC Glucose (mg/dL) (70-110) mg/dL Ur Specific [place] >1.050 H (1.001-1.035) Urine Protein 1+ H (Negative) Urine Glucose (UA) 4+ H (Negative) Urine Ketones 1+ H (Negative) 05/24/24 05/24/24 05/25/24 Range/Units 17:19 20:44 08:06 APTT (22.0-30.0) sec Sodium (137-145) mmol/L Creatinine (0.66-1.25) mg/dL Glucose (74-99) mg/dL POC Glucose (mg/dL) 281 H 291 H 197 H (70-110) mg/dL Ur Specific [place] (1.001-1.035) Urine Protein (Negative) Urine Glucose (UA) (Negative) Urine Ketones (Negative)
[2024-05-25 20:48] LABS: Glucose,Whole Blood 231 mg/dL (70-110)
[2024-05-25] MEDS: CLOPIDOGREL 75 MG TAB PO SCH (21:12)
[2024-05-26 05:36] LABS: Glucose,Whole Blood 149 mg/dL (70-110)
[2024-05-26 07:55] VITALS: BP 138/80; PULSE 86; RESP 16; TEMP 97.9
--- NOTE | 2024-05-26 08:36 | P.CNNES ---
History of Present Illness Consult date: 05/25/24 Requesting physician: Sheri Curran Reason for Consult: TIA History of Present Illness: Patient is a 64-year-old left-handed male came to the hospital by ambulance yesterday at 9:58 AM for strokelike symptoms. Patient states that yesterday he woke up at 8 AM and was not feeling right. He noticed his left arm was numb all over. Also noticed numbness in the left lower lateral thigh region. He got up and went to the bathroom. When he was coming back while standing, he felt will paint. He laid in the back. His niece came over and she called EMS. No report of slurred speech, facial droop or focal weakness. Patient states that by the time he got to the hospital, he was feeling better. As per EMS flowsheet when they arrived, patient was sitting on the edge of his bed speaking with FD members. Patient states he woke up this morning and had numbness and tingling on the entire left side of the body. He states he sat in the bed and after 45 minutes, the numbness and tingling went away and he then decided to call 911. Patient was alert and orient x 4. There was no weakness noted or numbness or tingling. Patient's vitals at the scene was blood pressure 178/97, pulse rate 93 respiration 18 saturation 96%. Subsequent blood pressure was 193/85 and then 168/88. Vital signs on arrival blood pressure 177/94. Temperature is normal. Blood test shows normal CBC, PT PTT sodium 135 potassium 4.5, normal renal and hepatic panel. Troponin negative. UA negative. Influenza, RSV and coronavirus PCR negative. Urine Legionella negative. Chest x-ray showed right basilar patchy airspace opacities concerning for pneumonia. EKG showed sinus rhythm with first degree AV block. CT head showed no acute intracranial process. Nonspecific white matter changes, likely secondary to chronic small vessel ischemic disease. Patient has history of diabetes for 8 years. Patient states he has history of seizures in his late 30s, but none for last 40 years. Patient denies any tobacco or alcohol use. Patient states he has history of a mild stroke in 1989, which also affected left arm and left leg. He also has history of fractured femur in an accident in 2012 and had undergone surgical treatment with a alcira inside. Patient's home medications include Jardiance, glipizide, Lipitor 20 mg, aspirin 81 mg and insulin. Review of Systems All pertinent positive and negatives review of systems mentioned in the HPI. Otherwise noncontributory. Patient does have some sores over her feet, peripheral edema, skin changes, poor hygiene of the feet. Past Medical History Past Medical History: Asthma, Diabetes Mellitus, Hypertension, Osteoarthritis (OA), Seizure Disorder, Vascular Disorder Additional Past Medical History / Comment(s): edema and open wounds to right leg History of Any Multi-Drug Resistant Organisms: None Reported Past Surgical History: Appendectomy, Cholecystectomy, Orthopedic Surgery Additional Past Surgical History / Comment(s): alcira in left leg from fractured femur, colonoscopy Past Anesthesia/Blood Transfusion Reactions: No Reported Reaction Past Psychological History: No Psychological Hx Reported Smoking Status: Never smoker Past Alcohol Use History: None Reported Past Drug Use History: None Reported - Past Family History Mother Family Medical History: Coronary Artery Disease (CAD), CVA/TIA Father Family Medical History: Dementia Medications and Allergies Home Medications Medication Instructions Recorded Confirmed Type Atorvastatin [Lipitor] 20 mg PO HS 10/28/22 05/24/24 History Empagliflozin [Jardiance] 25 mg PO DAILY 10/28/22 05/24/24 History glipiZIDE 10 mg PO BID 10/28/22 05/24/24 History Aspirin EC [Ecotrin Low Dose] 81 mg PO DAILY 05/24/24 05/24/24 History Cephalexin [Keflex] 500 mg PO Q6H 05/24/24 05/24/24 History INSULIN ASPART (NovoLOG) [NovoLOG See Protocol SQ AC-TID 05/24/24 05/24/24 History (formulary)] Allergies Allergy/AdvReac Type Severity Reaction Status Date / Time Penicillins Allergy Rash/Hives Verified 05/24/24 10:55 Physical Examination - Vital Signs Vital Signs: Vital Signs Temp Pulse Pulse Resp BP BP Pulse Ox 05/25/24 18:57 98.3 F 83 18 138/86 96 05/25/24 18:44 86 18 05/25/24 15:00 97.4 F L 91 20 170/86 96 05/25/24 13:43 98.0 F 88 20 167/74 96 05/25/24 08:41 97.3 F L 90 22 165/95 97 05/25/24 04:07 97.3 F L 82 18 151/85 97 05/24/24 22:30 97.8 F 84 17 169/98 98 05/24/24 20:45 79 18 157/83 96 Intake and Output 05/25/24 05/25/24 05/25/24 06:59 14:59 22:59 Intake Total 600 Output Total 160 1800 450 Balance -160 -1800 150 Intake: Oral 600 Output: Urine 160 1800 450 Other: Voiding Method External Catheter External Catheter # Voids 1 # Bowel Movements 1 Weight 148.778 kg Patient is an elderly male, in no acute distress. Patient is alert awake oriented to time place and person. Speech and language functions are normal. Patient can name and repeat very well. No aphasia or dysarthria. Attention, concentration and fund of knowledge is adequate. On cranial nerve examination, pupils are equal, round and reacting to light, visual maya are full on confrontation, with no neglect on double simultaneous stimulation. Extraocular muscles are intact with no nystagmus. Face is symmetric, tongue protrudes to the midline. Palatal elevation and sensation normal, hearing and shoulder shrug normal, facial sensation normal. On muscle strength testing, there is no pronator drift and the strength is normal in arms and legs distally and proximally. Deep tendon reflexes are symmetric but very hypoactive and plantars are flat. Sensory to touch is equal with no neglect on double simultaneous stimulation. Cerebellar function showed no ataxia for [id number] testing. No dysdiadochokinesia. Tone and bulk of muscles normal. Gait deferred.. On general examination, there is no carotid bruit or murmur, S1-S2 audible. Chest is clear on consultation. Abdomen is soft nontender. No organomegaly, bowel sounds present. Patient has peripheral edema. Patient has some ulcers over his dorsum of the foot. Poor hygiene of the feet. Results - Laboratory Findings CBC and BMP: 05/24/24 10:30 05/24/24 11:49 Abnormal Lab Findings: Abnormal Labs 05/24/24 05/24/24 05/24/24 11:49 11:49 14:36 APTT 21.4 L Sodium 135 L Creatinine 0.56 L Glucose 348 H POC Glucose (mg/dL) Ur Specific [place] >1.050 H Urine Protein 1+ H Urine Glucose (UA) 4+ H Urine Ketones 1+ H 05/24/24 05/24/24 05/25/24 17:19 20:44 08:06 APTT Sodium Creatinine Glucose POC Glucose (mg/dL) 281 H 291 H 197 H Ur Specific [place] Urine Protein Urine Glucose (UA) Urine Ketones 05/25/24 16:55 APTT Sodium Creatinine Glucose POC Glucose (mg/dL) 134 H Ur Specific [place] Urine Protein Urine Glucose (UA) Urine Ketones Assessment and Plan Assessment: * Probable TIA, manifesting with left-sided numbness, this seems to have resolved. Current NIH stroke scale is 0. * Diabetes * Hypertension * Hyperlipidemia * Obesity * Possible pneumonia * Peripheral edema * Open wounds to the right leg * History of seizure disorder, in remission for 40 years, currently not on any AED. Plan: Patient has a possible TIA. Symptoms have resolved. Patient needs workup for TIA. 2-D echo with bubble study to rule out PFO CTA head and neck showed: No evidence of dissection of the cervical internal carotid arteries, vertebral arteries or any evidence of significant stenosis at the carotid bifurcations. No evidence of high-grade stenosis or intracranial aneurysm. Fasting a.m. lipid panel Hemoglobin A1c B12, folate Optimize control of blood pressure. BP fairly well-controlled Patient was taking aspirin 81 mg daily. Will add Plavix 75 mg daily. Recommend continue dual antiplatelet therapy for 21 days and then stop aspirin and continue Plavix. Neuro checks every 4 hours. Telemetry monitoring rule out any arrhythmia PT, OT DVT prophylaxis: Lovenox 40 mg subcu daily Patient on ceftriaxone and azithromycin for possible pneumonia. Neurology will continue to follow. Thank you for the consult.
[2024-05-26 11:38] LABS: Chol/HDL Ratio 3.86 Ratio; LDL Cholesterol,Calculated 110.1 mg/dL (0.0-131.0)
[2024-05-26 12:15] LABS: Glucose,Whole Blood 151 mg/dL (70-110)
--- NOTE | 2024-05-26 16:59 | P.DS ---
Providers Date of admission: 05/24/24 16:55 Expected date of discharge: 05/26/24 Attending physician: Michel Pro Consults: 05/24/24 16:06 Consult Physician Urgent Consulting Provider: Sushma Alexis Consult Reason/Comments: TIA Do you want consulting provider notified?: Yes Primary care physician: Sesar [facility] Course: Chief Complaint: Left arm weakness This is a pleasant 64-year-old patient, follows with Dr. Sesar Fernandes. Chronic stable medical condition include diabetes, hypertension, osteoarthritis,. Patient has diagnosis of seizures in the past. Not taking any more medications. When he woke up yesterday morning he felt he could not really use his left arm. His speech was also slurred. He spoke to his niece. Sent to the hospital. He says for after 3 hours approximately his speech and came back to normal. No change in vision. No headache. Yesterday also patient had a significant cough. Some green sputum. No fever no chills. Some decreased appetite. Patient does use a cane when he goes outside the house. Otherwise does use a walker sometimes inside the house. May 26: No neurosymptoms. Cough much improved. Eating well. No fever no chills. Cleared by neurology for discharge. Patient completed short course of Ceftin for pneumonia. Questions answered. Spoke to social studies teacher Nery. Dis charge will be arranged via legal guardian. Social history: Lives alone. No alcohol no smoking. Cane when he goes outside the house and walker inside the house. Specially in the morning Physical examination: VITAL SIGNS: 98.7, 64, 18, 115 x 65, 99% room air GENERAL: BMI 42.1, reclining bed comfortable EYES: Pupils equal. Conjunctiva delmy l. HEENT: External appearance of nose and ears normal, oral cavity grossly normal. NECK: JVD not raised; masses not palpable. HEART: First and second heart sounds are normal; no edema. LUNGS: Respiratory rate normal; clear to auscultation. ABDOMEN: Soft, nontender, liver spleen not palpable, no masses palpable. PSYCH: Alert and oriented x3; mood and affect delmy l. MUSCULOSKELETAL:No Clubbing/cyanosis;muscles-grossly intact Investigation: Influenza type A, type B, RSV, COVID-19: Not detected May 24: White count 6.8 hemoglobin 15.1 platelets 251 sodium 135 potassium 4.5 creatinine 0.56 EKG tracing personally reviewed by me-normal sinus rhythm. Right bundle coleen block. Chest x-ray film personally reviewed by me-right basal infiltrate CT brain without contrast: Some chronic changes CTA head and neck: No stenosis. No dissection. Assessment plan: -Patient yesterday morning had an episode of left arm weakness.. Movement. Along with slurred speech. Reports symptoms lasted for about 3 hours. Resolved. Back to normal.: TIA Patient will do 3 weeks of overlap of aspirin and Plavix. Then we will continue Plavix. Aspirin will be discontinued. Lipitor -Right basal pneumonia suspect gram-negative organism: Better IV ceftriaxone. Zithromax. 3 more days of Ceftin 5 mg twice daily -Diabetes mellitus type 2 on oral hypoglycemic Glipizide. Jardiance. Follow Accu-Cheks with sliding scale insulin -Primary osteoarthritis Tylenol as needed -Chronic gait dysfunction does use a cane and a walker -Full code Disposition: Home Past Medical History Past Medical History: Asthma, Diabetes Mellitus, Hypertension, Osteoarthritis (OA), Seizure Disorder, Vascular Disorder Additional Past Medical History / Comment(s): edema and open wounds to right leg History of Any Multi-Drug Resistant Organisms: None Reported Past Surgical History: Appendectomy, Cholecystectomy, Orthopedic Surgery Additional Past Surgical History / Comment(s): alcira in left leg from fractured femur, colonoscopy Past Anesthesia/Blood Transfusion Reactions: No Reported Reaction Past Psychological History: No Psychological Hx Reported Smoking Status: Never smoker Past Alcohol Use History: None Reported Past Drug Use History: None Reported Plan - Discharge Summary Discharge Rx Participant: No New Discharge Prescriptions: New Clopidogrel [Plavix] 75 mg PO DAILY #30 tab cefUROXime axetiL [Ceftin] 500 mg PO BID #6 tab Continue Empagliflozin [Jardiance] 25 mg PO DAILY glipiZIDE 10 mg PO BID INSULIN ASPART (NovoLOG) [NovoLOG (formulary)] See Protocol SQ AC-TID Atorvastatin [Lipitor] 20 mg PO HS Aspirin EC [Ecotrin Low Dose] 81 mg PO DAILY #21 Discontinued Cephalexin [Keflex] 500 mg PO Q6H Discharge Medication List Atorvastatin [Lipitor] 20 mg PO HS 10/28/22 [History] Empagliflozin [Jardiance] 25 mg PO DAILY 10/28/22 [History] glipiZIDE 10 mg PO BID 03/22/23 [History] INSULIN ASPART (NovoLOG) [NovoLOG (formulary)] See Protocol SQ AC-TID 05/24/24 [History] Aspirin EC [Ecotrin Low Dose] 81 mg PO DAILY #21 05/26/24 [Rx] Clopidogrel [Plavix] 75 mg PO DAILY #30 tab 05/26/24 [Rx] cefUROXime axetiL [Ceftin] 500 mg PO BID #6 tab 05/26/24 [Rx] Follow up Appointment(s)/Referral(s): Sesar Fernandes MD [Primary Care Provider] - 1-2 days Activity/Diet/Wound Care/Special Instructions: FAX DISCHARGE PAPERWORK TO [facility] AT [phone]
[2024-05-29 07:22] LABS: Glucose,Whole Blood 219 mg/dL (70-110)
== END 2024-05-26 13:50 ==
LOC: EC 09:58 → 6NMEDSUR 16:55
PROVIDERS: ADMIT Hospitalist; ATTEND Hospitalist
DX: R53.1 Weakness (principal); R47.81 Slurred speech; R20.0 Anesthesia of skin; J18.9 Pneumonia, unspecified organism; J45.909 Unspecified asthma, uncomplicated; E11.649 Type 2 diabetes mellitus with hypoglycemia without coma; I10 Essential (primary) hypertension; E78.5 Hyperlipidemia, unspecified; R60.0 Localized edema; S81.801A Unspecified open wound, right lower leg, initial encounter; X58.XXXA Exposure to other specified factors, initial encounter; M19.91 Primary osteoarthritis, unspecified site; R26.9 Unspecified abnormalities of gait and mobility; E66.9 Obesity, unspecified; Z68.41 Body mass index [BMI] 40.0-44.9, adult; Z11.52 Encounter for screening for COVID-19; Z86.73 Personal history of transient ischemic attack (TIA), and cerebral infarction without residual deficits; Z79.84 Long term (current) use of oral hypoglycemic drugs; Z79.82 Long term (current) use of aspirin; Z79.4 Long term (current) use of insulin; Z88.0 Allergy status to penicillin
CPT/HCPCS: 96366 ×3; 96372 ×3; 96365; 96367; 99285; 36415; 93005; 80061; 80053; 87449; 82607; 82550; 82746; 83735; 84484; 85025; 85610; 85730; 81001; 87040; 83036; 87636; 71046; 70496; 70450; 70498; G0378 ×3; J0456; J0696 ×3; J1650 ×3; Q9967

== ENCOUNTER 2024-08-15 06:10 | Emergency (ER) | payer MEDICARE, OTHER ==
[2024-08-15 06:15] VITALS: RESP 18
[2024-08-15 06:16] LABS: Glucose,Whole Blood 185 mg/dL (70-110)
[2024-08-15] MEDS ORDERED: ACETAMINOPHEN TAB 325 MG TAB PO STA (06:26)
--- NOTE | 2024-08-15 06:31 | ED ---
Fall HPI - General Chief Complaint: Fall Stated Complaint: fall Time Seen by Provider: 08/15/24 06:27 Source: patient, RN notes reviewed Mode of arrival: EMS Limitations: physical limitation - History of Present Illness Initial Comments: 64-year-old male presented to the ER via EMS for evaluation of a fall. Patient states he was ambulating to the bathroom this morning when he lost his balance due to his neuropathy. He states he fell hitting his left shoulder and right knee. Patient denies head injury or loss of consciousness. Patient does take P lavix. Patient states he was able to crawl to the living room to call 911 for lift assistance. Patient states he was on the ground for approximately 20 minutes. Patient denies any dizziness, lightheadedness, chest pain or shortness of breath prior to fall. Patient does admit to a recent cough. He has no other complaints at this time. - Related Data Home Medications Medication Instructions Recorded Confirmed Atorvastatin [Lipitor] 20 mg PO HS 10/28/22 05/24/24 Empagliflozin [Jardiance] 25 mg PO DAILY 10/28/22 05/24/24 glipiZIDE 10 mg PO BID 10/28/22 05/24/24 INSULIN ASPART (NovoLOG) [NovoLOG See Protocol SQ AC-TID 05/24/24 05/24/24 (formulary)] Previous Rx's Medication Instructions Recorded Aspirin EC [Ecotrin Low Dose] 81 mg PO DAILY #21 05/26/24 Clopidogrel [Plavix] 75 mg PO DAILY #30 tab 05/26/24 cefuroxime axetiL [Ceftin] 500 mg PO BID #6 tab 05/26/24 Allergies Allergy/AdvReac Type Severity Reaction Status Date / Time Penicillins Allergy Rash/Hives Verified 08/15/24 06:15 Review of Systems ROS Statement: Those systems with pertinent positive or pertinent negative responses have been documented in the HPI. ROS Other: All systems not noted in ROS Statement are negative. Past Medical History Past Medical History: Asthma, Diabetes Mellitus, Hypertension, Osteoarthritis (OA), Seizure Disorder, Vascular Disorder Additional Past Medical History / Comment(s): edema and open wounds to right leg History of Any Multi-Drug Resistant Organisms: None Reported Past Surgical History: Appendectomy, Cholecystectomy, Orthopedic Surgery Additional Past Surgical History / Comment(s): alcira in left leg from fractured femur, colonoscopy Past Anesthesia/Blood Transfusion Reactions: No Reported Reaction Past Psychological History: No Psychological Hx Reported Smoking Status: Never smoker Past Alcohol Use History: None Reported Past Drug Use History: None Reported - Past Family History Mother Family Medical History: Coronary Artery Disease (CAD), CVA/TIA Father Family Medical History: Dementia General Exam Limitations: no limitations General appearance: alert, in no apparent distress, other (Patient smells of urine) Head exam: Present: atraumatic, normocephalic, normal inspection Respiratory exam: Present: normal lung sounds bilaterally. Absent: respiratory distress, wheezes, rales, rhonchi, stridor Cardiovascular Exam: Present: regular rate, normal rhythm, normal heart sounds. Absent: systolic murmur, diastolic murmur, rubs, gallop, clicks GI/Abdominal exam: Present: soft, normal bowel sounds. Absent: distended, tenderness, guarding, rebound, rigid Extremities exam: Present: normal inspection, full ROM, normal capillary refill, other (2+ bilateral DP and PT pulse.). Absent: tenderness, pedal edema, joint swelling, calf tenderness Neurological exam: Present: alert, oriented X3, CN II-XII intact Skin exam: Present: warm, dry, intact, normal color. Absent: rash Course Vital Signs 08/15/24 08/15/24 08/15/24 06:11 07:15 08:15 Temperature 97.6 F Pulse Rate 99 105 H 104 H Respiratory 18 18 18 Rate Blood Pressure 178/103 140/80 162/91 O2 Sat by Pulse 95 98 98 Oximetry 08/15/24 09:16 Temperature 97 F L Pulse Rate 106 H Respiratory 18 Rate Blood Pressure 166/87 O2 Sat by Pulse 100 Oximetry Medical Decision Making - Medical Decision Making Was pt. sent in by a medical professional or institution (, PA, REAL ESTATE OFFICE MANAGER, urgent care, hospital, or fdc...) When possible be specific @ -No Did you speak to anyone other than the patient for history (EMS, parent, family, police, friend...)? What history was obtained from this source @ -No Did you review nursing and triage notes (agree or disagree)? Why? @ -I reviewed and agree with nursing and triage notes Were old charts reviewed (outside hosp., previous admission, EMS record, old EKG, old radiological studies, urgent care reports/EKG's, fdc records)? Report findings @ -No old charts were reviewed Differential Diagnosis (chest pain, altered mental status, abdominal pain women, abdominal pain men, vaginal bleeding, weakness, fever, dyspnea, syncope, headache, dizziness, GI bleed, back pain, seizure, CVA, palpatations, mental health, musculoskeletal)? @ -Fracture, dislocation, contusion, hematoma, intracranial hemorrhage, concussion, abrasion, laceration this list does not like to be all-inclusive EKG interpreted by me (3pts min.). @ -As above X-rays interpreted by me (1pt min.). @ -Left shoulder x-ray interpreted me negative for acute fractures. Right knee x-ray interpreted by me negative for acute fractures. CT interpreted by me (1pt min.). @ -None done U/S interpreted by me (1pt. min.). @ -None done What testing was considered but not performed or refused? (CT, X-rays, U/S, labs)? Why? @ -CT brain considered but not performed as patient denies head injury. What meds were considered but not given or refused? Why? @ -None Did you discuss the management of the patient with other professionals (professionals i.e. , PA, REAL ESTATE OFFICE MANAGER, lab, RT, psych nurse, social media executive, wash house worker, teacher, security public safety officer, piano case maker)? Give summary @ -No Was smoking cessation discussed for >3mins.? @ -No Was critical care preformed (if so, how long)? @ -No Were there social determinants of health that impacted care today? How? (Homelessness, low income, unemployed, alcoholism, drug addiction, transportation, low edu. Level, literacy, decrease access to med. care, [place] [facility], rehab)? @ -No Was there de-escalation of care discussed even if they declined (Discuss DNR or withdrawal of care, Hospice)? DNR status @ -No What co-morbidities impacted this encounter? (DM, HTN, Smoking, COPD, CAD, Cancer, CVA, ARF, Chemo, Hep., AIDS, mental health diagnosis, sleep apnea, morbid obesity)? @ -Obese Was patient admitted / discharged? Hospital course, mention meds given and route, prescriptions, significant lab abnormalities, going to OR and other pertinent info. @ -Discharge. 64-year-old male presented to ER for evaluation of a fall. Patient denying head injury or loss of consciousness. Patient is complaining of left shoulder and right knee pain. Upon rooming, history and physical exam completed. Vital signs within acceptable limits. Patient is neurovascularly intact. With full range of motion of all extremities. Laboratory studies o btained unimpressive. Viral swabs negative. Imaging negative. EKG showing sinus rhythm with right bundle branch block similar to prior. Patient given p.o. Tylenol. Patient is stable for discharge upon reevaluation. Strict return parameters discussed. Patient discharged in stable condition with follow-up to PCP. Patient verbally expressed understanding and agreement with care plan. Case discussed with ED attending, Dr. Youngblood. Undiagnosed new problem with uncertain prognosis? @ -No Drug Therapy requiring intensive monitoring for toxicity (Heparin, Nitro, Insulin, Cardizem)? @ -No Were any procedures done? @ -No Diagnosis/symptom? @ -Fall Acute, or Chronic, or Acute on Chronic? @ -Acute Uncomplicated (without systemic symptoms) or Complicated (systemic symptoms)? @ -Uncomplicated Side effects of treatment? @ -No Exacerbation, Progression, or Severe Exacerbation? @ -No Poses a threat to life or bodily function? How? (Chest pain, USA, [place], pneumonia, PE, COPD, DKA, ARF, appy, cholecystitis, CVA, Diverticulitis, Homicidal, Suicidal, threat to staff... and all critical care pts) @ -No - Lab Data Result diagrams: 08/15/24 06:31 08/15/24 06:31 Lab Results 08/15/24 08/15/24 08/15/24 Range/Units 06:14 06:31 06:31 WBC 9.5 (3.8-10.6) k/uL RBC 5.23 (4.30-5.90) m/uL Hgb 15.6 (13.0-17.5) gm/dL Hct 46.9 (39.0-53.0) % MCV 89.7 (80.0-100.0) fL MCH 29.8 (25.0-35.0) pg MCHC 33.2 (31.0-37.0) g/dL RDW 14.1 (11.5-15.5) % Plt Count 243 (150-450) k/uL MPV 7.4 Neutrophils % 74 % Lymphocytes % 15 % Monocytes % 8 % Eosinophils % 2 % Basophils % 0 % Neutrophils # 7.0 (1.3-7.7) k/uL Lymphocytes # 1.4 (1.0-4.8) k/uL Monocytes # 0.7 (0-1.0) k/uL Eosinophils # 0.2 (0-0.7) k/uL Basophils # 0.0 (0-0.2) k/uL Sodium 140 (137-145) mmol/L Potassium 4.6 (3.5-5.1) mmol/L Chloride 103 (98-107) mmol/L Carbon Dioxide 28 (22-30) mmol/L Anion Gap 9 mmol/L BUN 17 (9-20) mg/dL Creatinine 0.64 L (0.66-1.25) mg/dL Est GFR (CKD-EPI)AfAm >90 (>60 ml/min/1.73 sqM) Est GFR (CKD-EPI)NonAf >90 (>60 ml/min/1.73 sqM) Glucose 198 H (74-99) mg/dL POC Glucose (mg/dL) 185 H (70-110) mg/dL POC Glu Distribution Agent ID Jaja Jovel Calcium 9.3 (8.4-10.2) mg/dL Total Bilirubin 0.4 (0.2-1.3) mg/dL AST 20 (17-59) U/L ALT 12 (4-49) U/L Alkaline Phosphatase 102 (38-126) U/L Total Protein 7.3 (6.3-8.2) g/dL Albumin 4.0 (3.5-5.0) g/dL Influenza Type A (PCR) (Not Detectd) Influenza Type B (PCR) (Not Detectd) RSV (PCR) (Not Detectd) SARS-CoV-2 (PCR) (Not Detectd) 08/15/24 Range/Units 06:31 WBC (3.8-10.6) k/uL RBC (4.30-5.90) m/uL Hgb (13.0-17.5) gm/dL Hct (39.0-53.0) % MCV (80.0-100.0) fL MCH (25.0-35.0) pg MCHC (31.0-37.0) g/dL RDW (11.5-15.5) % Plt Count (150-450) k/uL MPV Neutrophils % % Lymphocytes % % Monocytes % % Eosinophils % % Basophils % % Neutrophils # (1.3-7.7) k/uL Lymphocytes # (1.0-4.8) k/uL Monocytes # (0-1.0) k/uL Eosinophils # (0-0.7) k/uL Basophils # (0-0.2) k/uL Sodium (137-145) mmol/L Potassium (3.5-5.1) mmol/L Chloride (98-107) mmol/L Carbon Dioxide (22-30) mmol/L Anion Gap mmol/L BUN (9-20) mg/dL Creatinine (0.66-1.25) mg/dL Est GFR (CKD-EPI)AfAm (>60 ml/min/1.73 sqM) Est GFR (CKD-EPI)NonAf (>60 ml/min/1.73 sqM) Glucose (74-99) mg/dL POC Glucose (mg/dL) (70-110) mg/dL POC Glu Distribution Agent ID Calcium (8.4-10.2) mg/dL Total Bilirubin (0.2-1.3) mg/dL AST (17-59) U/L ALT (4-49) U/L Alkaline Phosphatase (38-126) U/L Total Protein (6.3-8.2) g/dL Albumin (3.5-5.0) g/dL Influenza Type A (PCR) Not Detected (Not Detectd) Influenza Type B (PCR) Not Detected (Not Detectd) RSV (PCR) Not Detected (Not Detectd) SARS-CoV-2 (PCR) Not Detected (Not Detectd) - EKG Data -: EKG Interpreted by Me EKG Comments: EKG taken at 6: 31 showing sinus rhythm with right bundle branch block. Ventricular rate 97, ME interval 206, QRS duration 185, QT/QTc 407/461. - Radiology Data Radiology results: report reviewed, image reviewed Disposition Clinical Impression: Fall Disposition: HOME SELF-CARE Condition: Stable Instructions (If sedation given, give patient instructions): Fall Prevention for Older Adults (ED) Additional Instructions: Follow-up with PCP. Return to the ER for any new or worsening symptoms. Is patient prescribed a controlled substance at d/c from ED?: No Referrals: Sesar Fernandes MD [Primary Care Provider] - 1-2 days Forms: Area PCPs Time of Disposition: 08:12
[2024-08-15 07:02] LABS: Basophils % (A) 0 %; Eosinophils # (A) 0.2 k/uL (0-0.7); Eosinophils % (A) 2 %; HCT 46.9 % (39.0-53.0); HGB 15.6 gm/dL (13.0-17.5); Lymphocytes # (A) 1.4 k/uL (1.0-4.8); Lymphocytes % (A) 15 %; MCH 29.8 pg (25.0-35.0); MCHC 33.2 g/dL (31.0-37.0); MCV 89.7 fL (80.0-100.0); Mean Platelet Volume 7.4; Monocytes # (A) 0.7 k/uL (0-1.0); Monocytes % (A) 8 %; Neutrophils % (A) 74 %; Platelet Count 243 k/uL (150-450); RBC 5.23 m/uL (4.30-5.90); RDW 14.1 % (11.5-15.5); WBC 9.5 k/uL (3.8-10.6)
--- NOTE | 2024-08-15 07:06 | XR ---
EXAMINATION TYPE: XR shoulder complete 3 views LT, XR knee complete 3 views RT DATE OF EXAM: 08/15/2024 6:51 AM COMPARISON: None CLINICAL INDICATION: Male, 64 years old with history of fall, pain, FINDINGS: Left shoulder: Diffuse osteopenia. Tiny focus of performed earlier calcification along the peripheral margin of the greater tuberosity. Mild degenerative change of the AC joint. No displaced fracture is seen. No sublu xation or dislocation. Right knee: Mild degenerative spurring in the medial lateral compartments. More moderate degenerative change of t he patellofemoral compartment with marginal spurring and joint space narrowing. Trace knee joint effu rosa. Extensor mechanism is intact. Osteopenia. No acute fracture seen. IMPRESSION: 1. Left shoulder: Limited by diffuse osteopenia. Tiny 4 mm focus of calcification is nonspecific but may be seen with calcific tendinitis. No displaced fracture seen. 2. Right knee: Tricompartmental osteoarthrosis, moderate in the patellofemoral compartment. Trace kne e joint effusion may be reactive. Osteopenia. No displaced fracture seen. [facility], Workstation: [email or web address], 08/15/2024 7:04 AM
[2024-08-15 07:26] LABS: ALT 12 U/L (4-49); African American GFR (CKD) >90 (>60 ml/min/1.73 sqM); Anion Gap 9 mmol/L; Blood Urea Nitrogen 17 mg/dL (9-20); Calcium 9.3 mg/dL (8.4-10.2); Carbon Dioxide 28 mmol/L (22-30); Chloride 103 mmol/L (98-107); Glucose 198 mg/dL (74-99); Non-African American GFR(CKD) >90 (>60 ml/min/1.73 sqM); Sodium 140 mmol/L (137-145); Total Bilirubin 0.4 mg/dL (0.2-1.3); Total Protein 7.3 g/dL (6.3-8.2)
[2024-08-15 07:30] LABS: AST 20 U/L (17-59); Alkaline Phosphatase 102 U/L (38-126); Potassium 4.6 mmol/L (3.5-5.1)
[2024-08-15 07:55] LABS: Influenza A Not Detected (Not Detectd); Influenza B Not Detected (Not Detectd); RSV Not Detected (Not Detectd)
[2024-08-15 09:22] VITALS: BP 166/87; PULSE 106; TEMP 97
== END 2024-08-15 09:16 | disposition home or self-care (01) ==
LOC: EC 06:10
DX: M25.512 Pain in left shoulder (principal); M25.561 Pain in right knee; I45.10 Unspecified right bundle-branch block; E66.9 Obesity, unspecified; Z68.42 Body mass index [BMI] 45.0-49.9, adult; Z88.0 Allergy status to penicillin; W19.XXXA Unspecified fall, initial encounter
CPT/HCPCS: 36415; 80053; 85025; 87636; 93005; 99284

== ENCOUNTER 2024-10-04 11:48 | Emergency (ER) | payer MEDICARE, OTHER ==
[2024-10-04 12:00] VITALS: RESP 20
--- NOTE | 2024-10-04 12:40 | ED ---
General Adult HPI - General Chief complaint: Extremity Injury, Lower Stated complaint: l toe/r foot wound Time Seen by Provider: 10/04/24 12:03 Source: patient Mode of arrival: wheelchair Limitations: no limitations - History of Present Illness Initial comments: Dictation was produced using [employer] dictation software. please excuse any grammatical, word or spelling errors. Chief Complaint: 64-year-old male with subacute wound to his left great toe History of Present Illness: Patient 64-year-old male who presents with a subacute wound to his left great toe. Patient states he stubbed his toe on his walker approximate 1 week ago. He started to notice a wound on his left great toe. Suffers from lymphedema and infectious symptoms. Patient states that there was some issue with home visiting nurse who did not end up showing up to his house. Allegedly this person was supposed to manage his wound. He did not know what to do so he called his vice president global digital marketing office and was told to come to the ER. Patient drove to the ER denies any fevers but does report constitutional symptoms. Patient currently on doxycycline. The ROS documented in this emergency department record has been reviewed and confirmed by me. Those systems with pertinent positive or negative responses have been documented in the HPI. All other systems are other negative and/or noncontributory. - Related Data Home Medications Medication Instructions Recorded Confirmed Atorvastatin [Lipitor] 20 mg PO HS 10/28/22 05/24/24 Empagliflozin [Jardiance] 25 mg PO DAILY 10/28/22 05/24/24 glipiZIDE 10 mg PO BID 10/28/22 05/24/24 INSULIN ASPART (NovoLOG) [NovoLOG See Protocol SQ AC-TID 05/24/24 05/24/24 (formulary)] Previous Rx's Medication Instructions Recorded Aspirin EC [Ecotrin Low Dose] 81 mg PO DAILY #21 05/26/24 Clopidogrel [Plavix] 75 mg PO DAILY #30 tab 05/26/24 cefuroxime axetiL [Ceftin] 500 mg PO BID #6 tab 05/26/24 Cephalexin [Keflex] 500 mg PO Q6HR 5 Days #20 cap 10/04/24 Allergies Allergy/AdvReac Type Severity Reaction Status Date / Time Penicillins Allergy Rash/Hives Verified 10/04/24 12:00 Review of Systems ROS Statement: Those systems with pertinent positive or pertinent negative responses have been documented in the HPI. ROS Other: All systems not noted in ROS Statement are negative. Past Medical History Past Medical History: Asthma, Diabetes Mellitus, Hypertension, Osteoarthritis (OA), Seizure Disorder, Vascular Disorder Additional Past Medical History / Comment(s): edema and open wounds to right leg History of Any Multi-Drug Resistant Organisms: None Reported Past Surgical History: Appendectomy, Cholecystectomy, Orthopedic Surgery Additional Past Surgical History / Comment(s): alcira in left leg from fractured femur, colonoscopy Past Anesthesia/Blood Transfusion Reactions: No Reported Reaction Past Psychological History: No Psychological Hx Reported Smoking Status: Never smoker Past Alcohol Use History: None Reported Past Drug Use History: None Reported - Past Family History Mother Family Medical History: Coronary Artery Disease (CAD), CVA/TIA Father Family Medical History: Dementia General Exam - General Exam Comments Initial Comments: PHYSICAL EXAM: General Impression: Alert and oriented x3, not in acute distress HEENT: Normocephalic atraumatic, extra-ocular movements intact, pupils equal and reactive to light bilaterally, mucous membranes moist. Cardiovascular: Heart regular rate and rhythm Chest: Able to complete full sentences, no retractions, no tachypnea Abdomen: abdomen soft, non-tender, non-distended, no organomegaly Musculoskeletal: Pulses present and equal in all extremities, no peripheral edema Motor: no focal deficits noted Neurological: CN II-XII grossly intact, no focal motor or sensory deficits noted Skin: Lymphedema to the bilateral lower extremity, subacute appearing wound that measures approximately 1 x 1 cm over the medial aspect of the dorsal great toe on the left foot Psych: Normal affect and mood Limitations: no limitations Course Vital Signs 10/04/24 11:55 Temperature 97.8 F Pulse Rate 110 H Respiratory 20 Rate Blood Pressure 144/75 O2 Sat by Pulse 97 Oximetry Medical Decision Making - Medical Decision Making Was pt. sent in by a medical professional or institution (, PA, TECHNOLOGY APPLICATIONS ENGINEER, urgent care, hospital, or retirement...) When possible be specific @ -No Did you speak to anyone other than the patient for history (EMS, parent, family, police, friend...)? What history was obtained from this source @ -No Did you review nursing and triage notes (agree or disagree)? Why? @ -I reviewed and agree with nursing and triage notes Were old charts reviewed (outside hosp., previous admission, EMS record, old EKG, old radiological studies, urgent care reports/EKG's, retirement records)? Report findings @ -No old charts were reviewed Differential Diagnosis (chest pain, altered mental status, abdominal pain women, abdominal pain men, vaginal bleeding, musculoskeletal, weakness, fever, dyspnea, syncope, headache, dizziness, GI bleed, back pain, seizure, CVA, palpatations, mental health)? @ -Osteomyelitis, cellulitis, gangrene EKG interpreted by me (3pts min.). @ -None done X-rays interpreted by me (1pt min.). @ -Foot x-ray shows no acute processes CT interpreted by me (1pt min.). @ -None done U/S interpreted by me (1pt. min.). @ -None done What testing was considered but not performed or refused? (CT, X-rays, U/S, labs)? Why? @ -None What meds were considered but not given or refused? Why? @ -None Was smoking cessation discussed for >3mins.? @ -No Were there social determinants of health that impacted care today? How? (Homelessness, low income, unemployed, alcoholism, drug addiction, tr ansportation, low edu. Level, literacy, decrease access to med. care, detention, rehab)? @ -No Was there de-escalation of care discussed even if they declined (Discuss DNR or withdrawal of care, Hospice)? DNR status @ -No What co-morbidities impacted this encounter? (DM, HTN, Smoking, COPD, CAD, Cancer, CVA, ARF, Chemo, Hep., AIDS, mental health diagnosis, sleep apnea, morbid obesity)? @ -Lymphedema Was patient admitted / discharged? Hospital course, mention meds given and route, prescriptions, significant lab abnormalities, going to OR and other pertinent info. @ -64-year-old male with subacute wound to his left great toe after he stubbed his toe on his walker. Vital signs stable. Wound appears to be benign. No drainage, no surrounding erythema or tracking. Evaluation is unremarkable. Patient told to discontinue doxycycline. Patient started Keflex advised to follow-up with his vice president global digital marketing. Did you discuss the management of the patient with other professionals (professionals i.e. , PA, TECHNOLOGY APPLICATIONS ENGINEER, lab, RT, psych nurse, social media marketer, air turning machine feeder, teacher, probation and parole officer, case repairer)? Give summary @ -No Was critical care preformed (if so, how long)? @ -No Undiagnosed new problem with uncertain prognosis? @ -No Drug Therapy requiring intensive monitoring for toxicity (Heparin, Nitro, Insulin, Cardizem)? @ -No Were any procedures done? @ -No Diagnosis/symptom? Acute, or Chronic, or Acute on Chronic? Uncomplicated (without systemic symptoms) or Complicated (systemic symptoms)? @ -Foot wound Side effects of treatment? @ -No Exacerbation, Progression, or Severe Exacerbation? @ -No Poses a threat to life or bodily function? How? (Chest pain, [place], [place], pneumonia, PE, COPD, DKA, ARF, appy, cholecystitis, CVA, Diverticulitis, Homicidal, Suicidal, threat to staff... and all critical care pts) @ -No - Lab Data Result diagrams: 10/04/24 13:08 10/04/24 13:08 Lab Results 10/04/24 10/04/24 Range/Units 13:08 13:08 WBC 13.9 H (3.8-10.6) k/uL RBC 5.15 (4.30-5.90) m/uL Hgb 14.6 (13.0-17.5) gm/dL Hct 46.3 (39.0-53.0) % MCV 89.9 (80.0-100.0) fL MCH 28.4 (25.0-35.0) pg MCHC 31.6 (31.0-37.0) g/dL RDW 14.5 (11.5-15.5) % Plt Count 393 (150-450) k/uL MPV 7.2 Neutrophils % 81 % Lymphocytes % 9 % Monocytes % 6 % Eosinophils % 2 % Basophils % 0 % Neutrophils # 11.3 H (1.3-7.7) k/uL Lymphocytes # 1.2 (1.0-4.8) k/uL Monocytes # 0.9 (0-1.0) k/uL Eosinophils # 0.3 (0-0.7) k/uL Basophils # 0.1 (0-0.2) k/uL Sodium 136 L (137-145) mmol/L Potassium 4.5 (3.5-5.1) mmol/L Chloride 98 (98-107) mmol/L Carbon Dioxide 23 (22-30) mmol/L Anion Gap 15 mmol/L BUN 14 (9-20) mg/dL Creatinine 0.64 L (0.66-1.25) mg/dL Est GFR (CKD-EPI)AfAm >90 (>60 ml/min/1.73 sqM) Est GFR (CKD-EPI)NonAf >90 (>60 ml/min/1.73 sqM) Glucose 141 H (74-99) mg/dL Calcium 9.6 (8.4-10.2) mg/dL Disposition Clinical Impression: Wound of foot Disposition: HOME SELF-CARE Condition: Fair Instructions (If sedation given, give patient instructions): Wound Infection (ED) Prescriptions: Cephalexin [Keflex] 500 mg PO Q6HR 5 Days #20 cap Is patient prescribed a controlled substance at d/c from ED?: No Referrals: Marjorie Brenner MD [Primary Care Provider] - 1-2 days Time of Disposition: 14:12
[2024-10-04 13:31] LABS: Basophils # (A) 0.1 k/uL (0-0.2); Basophils % (A) 0 %; Eosinophils # (A) 0.3 k/uL (0-0.7); Eosinophils % (A) 2 %; HCT 46.3 % (39.0-53.0); HGB 14.6 gm/dL (13.0-17.5); Lymphocytes # (A) 1.2 k/uL (1.0-4.8); Lymphocytes % (A) 9 %; MCH 28.4 pg (25.0-35.0); MCHC 31.6 g/dL (31.0-37.0); MCV 89.9 fL (80.0-100.0); Mean Platelet Volume 7.2; Monocytes # (A) 0.9 k/uL (0-1.0); Monocytes % (A) 6 %; Neutrophils # (A) 11.3 k/uL (1.3-7.7); Neutrophils % (A) 81 %; Platelet Count 393 k/uL (150-450); RBC 5.15 m/uL (4.30-5.90); RDW 14.5 % (11.5-15.5); WBC 13.9 k/uL (3.8-10.6)
--- NOTE | 2024-10-04 13:38 | XR ---
EXAMINATION TYPE: XR foot limited LT DATE OF EXAM: 10/04/2024 1:27 PM COMPARISON: None. CLINICAL INDICATION: Male, 64 years old with history of great toe wound, pain TECHNIQUE: Frontal and lateral images of the left foot are obtained. FINDINGS: Demineralization is present which is noted to lower radiographic sensitivity for evaluation of fine anatomic detail . There is no acute fracture/dislocation evident in the left foot. Large inf erior calcaneal spur is present. There is midfoot dorsal aspect spurring. There is moderate narrowing at the first metatarsophalangeal joint. There is severe narrowing at the first interphalangeal joint . No suspicious bony destruction to suggest acute osteomyelitis is present. Moderate soft tissue prom inence or possible swelling of the entire left foot is noted. IMPRESSION: There is no convincing radiographic evidence for acute osteomyelitis. If clinical concer n persists further investigation with 3 phase bone scan and/or MRI may be warranted. [facility], , 10/04/2024 1:36 PM
[2024-10-04 13:41] LABS: African American GFR (CKD) >90 (>60 ml/min/1.73 sqM); Anion Gap 15 mmol/L; Blood Urea Nitrogen 14 mg/dL (9-20); Calcium 9.6 mg/dL (8.4-10.2); Carbon Dioxide 23 mmol/L (22-30); Chloride 98 mmol/L (98-107); Glucose 141 mg/dL (74-99); Non-African American GFR(CKD) >90 (>60 ml/min/1.73 sqM); Potassium 4.5 mmol/L (3.5-5.1); Sodium 136 mmol/L (137-145)
[2024-10-04 15:31] VITALS: BP 140/82; PULSE 103; TEMP 97.7
== END 2024-10-04 15:31 | disposition home or self-care (01) ==
LOC: EC 11:48
DX: S91.302A Unspecified open wound, left foot, initial encounter (principal); I89.0 Lymphedema, not elsewhere classified; Z88.0 Allergy status to penicillin; W22.8XXA Striking against or struck by other objects, initial encounter
CPT/HCPCS: 36415; 80048; 85025; 99283